=== PATIENT | female | born 1960 | race Caucasian/White ===

== ENCOUNTER 2017-10-17 07:29 | Emergency (ER) | payer BC ==
[~2017-10-17] VITALS: Ht 167.6 cm; Wt 111.6 kg
--- OUTSIDE RECORDS SUMMARY | ~2017-10-17 | XMS ---
Demographics + + + | Address | [address] | | | [address] | | | [place] [address] | + + + | Preferred Language | Unknown | + + + | Marital Status | Unknown | + + + | Moravian Affiliation | Unknown | + + + | Race | Unknown | + + + | Ethnic Group | Unknown | + + + Author + + + | Author | [facility] | + + + | Organization | [facility] | + + + | Address | 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) | | | | | | | | DNA test | | | | | | | | positive | | | | | | +---------+ + + +--------+ + + | Problem | CPAP | Z99.89 | | | Active | [id number] | | | (continuou | | | | | | | | s positive | | | | | | | | airway | | | | | | | | pressure) | | | | | | | | dependence | | | | | | +---------+ + + +--------+ + + | Problem | Family | | Z83.3 | | Active | [id number] | | | history of | | | | | | | | diabetes | | | | | | | | mellitus | | | | | | +---------+ + + +--------+ + + | Problem | Depression | | F32.9 | | Active | [id number] | +---------+ + + +--------+ + + | Problem | Asthma | | J45.909 | | Active | [id number] | +---------+ + + +--------+ + + ALLERGIES + + + + +--------+ | Substance | Reaction | Event Type | Date | Status | + + + + +--------+ | Erythromycin | vomiting | Drug Allergy | Jul, | Active | + + + + +--------+ SOCIAL HISTORY Never Assessed PLAN OF CARE + +---------+ | Activity | Details | + +---------+ +---+ | | +---+ + + + | Follow Up | prn, 3 Months Reason:null | + + + VITAL SIGNS + + + + | Height | 5ft 7in in | 2017-08-01 | + + + + | Weight | 270 lbs | 2017-08-01 | + + + + | BMI | 42.28 kg/m2 | 2017-08-01 | + + + + | Heart Rate | 70 /min | 2017-08-01 | + + + + | Blood pressure systolic | 140 mm Hg | 2017-08-01 | + + + + | Blood pressure diastolic | 75 mm Hg | 2017-08-01 | + + + + MEDICATIONS + + + + + + + +--------+ | Medicati | Instruct | Dosage | Frequenc | Start | End Date | Duration | Status | | on | ions | | y | Date | | | | + + + + + + + +--------+ | Hydrochl | Orally | 1 tablet | 24h | 02 Jul, | | 30 | Active | | orothiaz | Once a | in the | | 2016 | | day(s) | | | venessa 12.5 | day | morning | | | | | | | MG | | | | | | | | + + + + + + + +--------+ | Monteluk | Orally | 1 tablet | 24h | | | 30 | Active | | ast | Once a | in the | | | | day(s) | | | Sodium | day | evening | | | | | | | 10 mg | | | | | | | | + + + + + + + +--------+ | Advair | Inhalati | 1 puff | 12h | | | 30 days | Active | | Diskus | on Twice | | | | | | | | 100-50 | a day | | | | | | | | MCG/DOSE | | | | | | | | + + + + + + + +--------+ | Progeste | Orally | 1 | 24h | 28 May, | | 30 days | Active | | vidhya 100 | Once a | capsule | | 2017 | | | | | MG | day | at | | | | | | | | | bedtime | | | | | | + + + + + + + +--------+ | ProAir | Inhalati | 2 puffs | 4h | | | 30 | Active | | HFA 108 | on every | as | | | | day(s) | | | (90 | 4 hrs | needed | | | | | | | Base) | | | | | | | | | MCG/ACT | | | | | | | | + + + + + + + +--------+ | Sumatrip | Orally | 1 tablet | 12h | | | 30 | Active | | tolbert | Twice a | as | | | | day(s) | | | Succinat | day | needed | | | | | | | e 100 mg | | | | | | | | + + + + + + + +--------+ | Fluoxeti | Orally | 1 | 24h | | | 30 | Active | | ne HCl | Once a | capsule | | | | day(s) | | | 60 MG | day | in the | | | | | | | | | morning | | | | | | + + + + + + + +--------+ | Estradio | Orally | 1 tablet | 24h | | | 30 | Active | | l 1 MG | Once a | | | | | day(s) | | | | day | | | | | | | + + + + + + + +--------+ RESULTS No Results PROCEDURES + + +--------+ + | Procedure | Date Ordered | Result | Body Site | + + +--------+ + | DSCHRG MED/CURRENT | Aug 01, 2017 | | | | MED MERGE | | | | + + +--------+ + | TOBACCO NON-USER | Aug 01, 2017 | | | + + +--------+ + | DOC MEDS VERIFIED | Aug 01, 2017 | | | | W/PT OR RE | | | | + + +--------+ + IMMUNIZATIONS No Known Immunizations MEDICAL (GENERAL) HISTORY + + +------+ | Type | Description | Date | + + +------+ | Medical History | Chronic Asthma | | + + +------+ | Medical History | Depression | | + + +------+ | Surgical History | tonsillectomy | 1964 | + + +------+ | Surgical History | wisdom teeth removed | 1977 | + + +------+"
[~2017-10-17 07:29] MED LIST: ADVAIR 250-501 EACH INH; FLUOXETINE HCL60 MG PO; IMITREX25 MG PO; PROVENTIL HFA6.7 GM INH; SINGULAIR10 MG PO
[2017-10-17] MEDS ORDERED: HYDROCHLOROTH12.5 M1 PO (07:45)
[2017-10-17] MEDS ORDERED: ESTRADIOL1 MG PO (07:45)
--- NOTE | 2017-10-17 22:25 | EKG ---
[facility] [address] [place] [address] Signed Normal sinus rhythm Normal ECG When compared with ECG of 21-OCT-2016 19:39, No significant change was found Confirmed by RACHAEL BENTON MD ([id number]) on 10/17/2017 10:25:39 PM Electronically Signed By: RACHAEL BENTON MD 10/17/17 2225 PAT[facility] DATE OF : 56 PHYSICIAN: RACHAEL BENTON MD REPORT #: [id number] REPORT IS CONFIDENTIAL AND NOT TO BE RELEASED WITHOUT AUTHORIZATION
== END 2017-10-17 09:30 | disposition home or self-care (01) ==
LOC: ED 07:29
DX: J45.909 Unspecified asthma, uncomplicated (principal); J06.9 Acute upper respiratory infection, unspecified; Z88.1 Allergy status to other antibiotic agents; Z79.899 Other long term (current) drug therapy; Z98.890 Other specified postprocedural states
CPT/HCPCS: 71020; 80053; 83735; 84484; 85025; 93005; 93010; 94640; 96374; 99284; J1100; J2060

== ENCOUNTER 2020-06-10 20:39 | Emergency (ER) | payer BC ==
[~2020-06-10] VITALS: Ht 167.6 cm; Wt 117.9 kg
--- OUTSIDE RECORDS SUMMARY | ~2020-06-10 | XMS | Encounter Summary ---
Demographics + + + | Address | [address] | | | [place] [address] | + + + | Home Phone | | + + + | Preferred Language | Unknown | + + + | Marital Status | | + + + | Tenriism Affiliation | Unknown | + + + | Race | Unknown | + + + | Ethnic Group | Unknown | + + + Author + + + | Author | [facility] | | | and [place] | + + + | Organization | [facility] | | | and [place] | + + + | Address | Unknown | + + + | Phone | Unavailable | + + + Support + + +---------+ + | Name | Relationship | Address | Phone | + + +---------+ + | Charbel Sequeira | ECON | Unknown | | + + +---------+ + Care Team Providers + +------+ + | Care Sergeant Missile Crewman Name | Role | Phone | + +------+ + | Fady Storm MD | PCP | | + +------+ + Reason for Visit +---------+ + | Reason | Comments | +---------+ + | Consult | | +---------+ + Evaluate & Treat (Routine) +--------+--------+ + + + + | Status | Reason | Specialty | Diagnoses / | Referred By | Referred To | | | | | Procedures | Contact | Contact | +--------+--------+ + + + + | Closed | | Internal | Diagnoses | Dotty | Terry, | | | | Medicine - | Obstructive | Fady Huggins, | Jarrod Fuentes | | | | Sleep | sleep apnea | [address] | [address] | | | | Medicine / | (adult) | [address] | [address] | | | | Sleep | (pediatric) | [place], | [address] | | | | Medicine | consult, | [place] [address] | [place], [place] | | | | | [email or web address], [address] | Phone: | [phone] Phone: | | | | | in drawer, | [phone] | [phone] | | | | | bring | Fax: | Fax: | | | | | equip/AO | [phone] | [phone] | | | | | Procedures | | | | | | | NEW PATIENT | | | +--------+--------+ + + + + Encounter Details +--------+---------+ + + + | Date | Type | Department | Care Team | Description | +--------+---------+ + + + | 12/21/ | Office | [facility] | Viviana Quiroga | ELMER (obstructive | | 2020 | Visit | SLEEP DISORDER [address] | Noemi, DIRECTOR OF DATABASE MARKETING [address] | sleep apnea) | | | | [address] [place] | [address] [place] | (Primary Dx); | | | | [place] [address] | [place] [address] | Snoring; Fatigue, | | | | [phone] | [phone] | unspecified type | | | | | | | +--------+---------+ + + + Social History + +-------+ +--------+------+ | Tobacco Use | Types | Packs/Day | Years | Date | | | | | Used | | + +-------+ +--------+------+ | Never Smoker | | | | | + +-------+ +--------+------+ + +---+---+---+ | Smokeless Tobacco: | | | | | Never Used | | | | + +---+---+---+ + + +---------+ + | Alcohol Use | Drinks/Week | oz/Week | Comments | + + +---------+ + | Yes | | | | + + +---------+ + + + + + | Alcohol Habits | Answer | Date Recorded | + + + + | How often do you have a drink containing | 2-4 times a month | 12/21/2019 | | alcohol? | | | + + + + | How many drinks containing alcohol do you | 1 or 2 | 12/21/2019 | | have on a typical day when you are | | | | drinking? | | | + + + + | How often do you have six or more drinks on | Not asked | | | one occasion? | | | + + + + + + + + | Education | Answer | Date Recorded | + + + + | What is the highest level of school you | Professional school | 12/21/2019 | | have completed or the highest degree you | degree (e.g., , KAMILLA, | | | have received? | DVM, FAUSTO) | | + + + + + + + | Sex Assigned at | Date Recorded | | | | + + + | Not on file | | + + + documented as of this encounter Last Filed Vital Signs + + + + + | Vital Sign | Reading | Time Taken | Comments | + + + + + | Blood Pressure | 126/80 | 12/21/2019 9:56 AM | | | | | PST | | + + + + + | Pulse | 82 | 12/21/2019 9:56 AM | | | | | PST | | + + + + + | Temperature | - | - | | + + + + + | Respiratory Rate | 16 | 12/21/2019 9:56 AM | | | | | PST | | + + + + + | Oxygen Saturation | 96% | 12/21/2019 9:56 AM | | | | | PST | | + + + + + | Inhaled Oxygen | - | - | | | Concentration | | | | + + + + + | Weight | 121.3 kg (267 lb 6.7 | 12/21/2019 9:56 AM | | | | oz) | PST | | + + + + + | Height | 171.5 cm (5' 7.5") | 12/21/2019 9:56 AM | | | | | PST | | + + + + + | Body Mass Index | 41.27 | 12/21/2019 9:56 AM | | | | | PST | | + + + + + documented in this encounter Progress Notes Viviana Quiroga, SAJAN - 12/21/2019 10:00 AM PSTFormatting of this note might be diff erent from the original. Karime [facility] [place] [address] Ref: Fady Storm MD CC: Previous diagnosis of obstructive sleep apnea, severe daytime fatigue Chief Complaint Patient presents with Consult History of the Present Illness:This is a 59 y.o. female who is referred for sleep medicine consultation by Fady Storm MD because of a history of obstructive sleep apnea and daytime fatigue. Other significant medical issues include asthma and depression. The patient 's records are reviewed. The patient is interviewed and examined. Sleep/Wake Schedule: Ms. Tillman goes to bed at 9 PM every night and gets up at 5:30 AM on or but sleeps until 8 AM on weekends. It takes her less than 2 minutes, she says, to f all asleep. She wakes up once during the night to use the bathroom, but she is able to go b ack to sleep within a few minutes. She denies night sweats, nocturnal heartburn, and mornin g headaches. She endorses morning dry mouth and morning nasal stuffiness. She tosses and t urns at night and wakes up feeling unrefreshed. Dreams: The patient dreams most nights but seldom has nightmares. Her dreams began in the later part of the evening. She denies hypnagogic and hypnopompic hallucinations, sleepwalki ng, dream enactment, and sleep paralysis. RLS/PLM: She denies symptoms of restless legs and does not kick or twitch in her sleep. Sh e commonly has hypnic jerks. Apnea: The patient has been snoring since her early 20s. She has been observed stopping br eathing in her sleep. She has woken herself up snoring as well as gasping for air. She junior s not know if it is worse if she sleeps in any specific position. She sleeps on her left si de or back. Daytime Functioning: She is currently using her 6-year-old CPAP set to 8 cm H2O. It is not working properly because the hose comes off the mask and the humidifier no longer works. I n fact, it appears her CPAP is not recording data. The patient states she wears it each nig ht, but the compliance information from the last year indicates she has not been wearing it at all except for one evening for 16 minutes. She wakes up every morning feeling completely exhausted. She naps whenever she has an opportunity. On weekdays she naps twice. 30 minut es each time. On weekends she naps 2 to 4 hours Tuesday and Tuesday. She finds naps to be refreshing. She has driven while drowsy and even fallen asleep while driving. She denies s ymptoms of cataplexy. She drinks 4 cups of coffee in the morning. She has an espresso with lunch. Past Medical History: She has a past medical history of Asthma and Depression. She has a past surgical history that includes Tonsillectomy. Allergies Allergen Reactions Erythromycin Nausea And Vomiting Current Outpatient Medications Medication Sig Dispense Refill ADVAIR DISKUS 100-50 MCG/DOSE diskus inhaler Inhale 1 puff into the lungs 2 times daily . 10 DULoxetine (CYMBALTA) [address] capsule Take 20 mg by mouth Daily. estradiol (ESTRACE) 1 mg tablet Take 1 mg by mouth Daily. 0 FLUoxetine (PROZAC) 20 mg capsule Take 40 mg by mouth Daily. 1 hydroCHLOROthiazide (MICROZIDE) 12.5 MG capsule Take 12.5 mg by mouth Daily. 10 montelukast (SINGULAIR) 10 mg tablet Take 10 mg by mouth every evening. 10 progesterone (PROMETRIUM) 100 mg capsule Take 100 mg by mouth nightly. 0 No current facility-administered medications for this visit. Past Surgical History: Procedure Laterality Date TONSILLECTOMY There is no immunization history on file for this patient. Family Medical History: Her family history is not on file. She indicated that her mother is alive. She indicated that her father is alive. 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 Wants to refinish furniture and paint in her free ti me. Review of Systems: Constitutional: Denies unexplained fevers, chills, sweats, significant recent weight cortes ge. Eyes:Denies sudden loss of vision, diplopia, blurred vision. ENT: Denies loss of hearing, vertigo, nasal or sinus congestion, bleeding gums or poor de ntal repair. Card:Denies exertional substernal chest heaviness, leg pain. Denies palpitations, orthopn ea, ankle edema, presyncope. Resp: Endorses occasional cough. Denies wheezing, asthma, hemoptysis GI: Denies nausea, vomiting, abdominal pain, diarrhea, constipation, hematochezia. : Denies dysuria, pyuria, hematuria, frequency, incontinence MS: Denies back pain, neck pain, arthralgias, arthritis, myalgias Neuro: Denies seizures, strokes, loss of consciousness, dysesthesias or paresthesias, syn cope, concussions. Psych: Endorses depression (in remission). Denies: anxiety, panic, past history physical or sexual abuse, severe traumatic experiences Endocrine: Denies heat or cold intolerance Heme: Denies easy bruising or prolonged bleeding. No history of transfusions Allergic/Immunologic: Denies seasonal allergies PE: BP 126/80 | Pulse 82 | Resp 16 | Ht 1.715 m (5' 7.5") | Wt 121.3 kg (267 lb 6.7 oz) | SpO2 96% | BMI 41.27 kg/m Gen: obese, healthy, alert and not in acute distress HEENT:Head: Normocephalic, no lesions, without obvious abnormality. Nose: Normal external nose, mucus membranes and septum. Pharynx: Dental Hygiene adequate. Normal buccal mucosa. Normal pharynx. Mallampati 2 Pulm: lungs clear to auscultation, breath sounds equal and symmetric, no rhonchi, rales or wheezes Card: regular rate and rhythm, S1, S2 normal, no murmur, click, rub or gallop GI: soft, non-tender, without masses or organomegaly : Not examined Rectal: Not Examined Ext: not examined Skin:no rashes, no ecchymoses, no jaundice, no wounds Neuro:Grossly normal Psych:well dressed Alert and oriented to time, place and person, mood and affect are withi n normal limits, pt is a good historian; no memory problems were noted Heme: has no history of blood transfusion. Questionnaires Review: The score of 13 on the [place] Sleepiness scale suggests mild excess eloy sleepiness (11-14). The score of 20 on the Insomnia Severity Scale suggests that the pat ient has moderate clinical insomnia (15-21) and is severely dissatisfied with the quality of sleep. The Greene Depression Inventory score and severity with which it is consistent are 8 - Minimal depression. The score of 1 on the Greene Anxiety Inventory suggests minimal (0-7) rec ognized anxiety. The SF36v2 scores are as follows: Physical Functionin.54, Physical Role: 57.16, Genera l Health Perception: 53.19, Bodily Pain: 51.51, Emotional Role Functionin.17, Vitality: 31.8, Mental health: 56.1. These culminate to a Physical Composite Score of 53.92 and a Mental Composite Score of 49.1 7 which suggests the patient regards her physical and mental wellbeing to be roughly equival ent of the mean. She regards her vitality to be nearly 2 standard deviations below the mean . Assessment: Mrs. Tillman had a sleep study in 2013 in [place], [place], and she was diagnos ed with obstructive sleep apnea. She continued to have suboptimal sleep and had a polysomnog kwame in 2018 to titrate CPAP. 2018 Polysomnogram results are as follows: At [facility] sleep disorders lab in [facility] the patient was evaluated for sleep breathing disorders and all night polysomnogram on December 30, 2017. Study was requ ested to evaluate for optimizing CPAP therapy for obstructive sleep apnea and to evaluate fo r PLMD. Sleep architecture and staging: Testing began at 9:14 PM and ended at 5:45 AM for a total r ecording time of 510.4 minutes the sleep. Lasted 503.7 minutes and the total sleep time was 444 minutes, which resulted in a sleep efficiency of 87%. The sleep latency was 6.7 minute s. Latency to the first occurrence of stage R was 327 minutes. There were 2 stage R. He i s observed on the study night, 23 awakenings, and 113 total sleep transitions. Wake after sleep onset time accounted for 59.7 minutes, while the time spent in each sleep stage was 53.5 minutes for stage I 270.5 minutes for stage II 62.0 minutes for stage III and 58 minutes for stage are the percentage of total sleep time in each stage was 12%, 60.9%, 1 4%, and 13.1% respectively. Respiratory: The patient experienced 1 apnea which was central apnea. Yielding an AHI of 0 .3 events per hour. There were 0 occurrences of Elfego-Neff breathing, and 32 respiratory effort related arousals. The R ERA index was 4.3 events per hour, and his total respirator y index was 4.6 events per hour Oximetry analysis of continuous oxygen saturation showed a mean SPO2 value of 91.6% through out the study, with a minimum oxygen saturation during sleep of 88% and a mean value of 91.4 % for the same. Oxygen saturation below 88% equals 0 minutes of time spent asleep. Arousal: The patient experienced 438 total arousals for an arousal index of 59.2 arousals p er hour. Of these, 34 were identified as respiratory related arousals (4.6/h), 48 were PLM related arousal 6.5/h, and 356 were spontaneous (48.1/h) the results of no identifying c ause. Cardiac: Analysis of ECG activity showed sinus rhythm with the highest heart rate during th e recording was 145 bpm. The average heart rate during sleep was 67 bpm, while the highest heart rate for the same. Was 85 bpm. The patient experienced no cardiac arrhythmias. Limb movements there were a total of 244 periodic limb movements during sleep, of which 47 were associated with arousals. This resulted in a PLM index of 33/h and a PLM arousal index of 6.4/h. Summary: Findings related to sleep diagnosis: There was mild residual R ERA noted with CPAP starting at 5 cm of 2 oh. Due to mild R ERA, CPAP was incrementally increased to 8 cm H2O where it appears to control the respiratory events the best with supine sleep. EEG abnormalities: Sleep architecture was fragmented with frequent arousals and short perio ds of awakening and severely delayed REM sleep. Arousals were mostly related to spontaneous arousals. However, PLM's also appear to cause significant arousals. Interpretation: Severe periodic limb movement disorder (PLMD (with arousals (PLM's index 33, PLM with arous al index 6.4) Obstructive sleep apnea Fragmentation of sleep mostly due to spontaneous arousal and PLM Recommendations Evaluate and treat for PLMD, obtain ferritin level. Start iron supplementation. If ferrit in is less than 75, repeat ferritin level every 3 months with goal of raising it above 75. Consider using gabapentin or dopamine agonist for PLM. Because all antidepressants except W ellbutrin can worsen RLS with PLM, 1 should consider tapering off fluoxetine as clinically d eemed helpful. CPAP 8 cm H2O with [employer] DreamWear nasal mask and chinstrap Weight reduction should be addressed as a part of comprehensive treatment for ELMER as well a s general health maintenance and prevention Principles of sleep hygiene should be reviewed and encouraged as needed. Obstructive sleep apnea: The patient states she does not currently have any problems with p eriodic limb movements or restless legs. She has been diagnosed with obstructive sleep apne a. It appears her current CPAP is malfunctioning. Plan: She is being prescribed APAP today and will follow-up with [facility] PAP adherence team. Patient Active Problem List Diagnosis Fatigue Today, 45 minutes were spent face to face with the patient; the majority of time was spent counseling regarding obstructive sleep apnea. Parts of this note were dictated using WideOrbit voice recognition software. Occasional wrong - word or sound-alike substitutions may have occurred due to the inherent limitations of C4Roboi ce recognition software. Please read the chart carefully and recognize, using context, mathew crawford these substitutions have occurred. Fiona Avelar, Rod Piler - 12/21/2019 10:00 AM PSTFormatting of this note might be different from t he original. 12/21/19 0900 Greene Depression Inventory-II Depression Score 8 - Minimal depression Insomnia Severity Index Insomnia Severity Index 20 [place] Sleepiness Scale 1. Sitting and reading 2 2. Watching TV 3 3. Sitting, inactive in a public place (e.g. a theatre or a meeting) 2 4. As a passenger in a car for an hour without a break 3 5. Lying down to rest in the afternoon when circumstances permit 3 6. Sitting and talking to someone 0 7. Sitting quietly after a lunch without alcohol 0 8. In a car, while stopped for a few minutes in traffic 0 Total score 13 SF-36v2 Score PF 57.54 RP 57.16 BP 51.51 GH 53.19 VT 31.8 SF 52.33 RE 56.17 MH 56.1 PCS 53.92 MCS 49.17 documented in th is encounter Plan of Treatment Not on filedocumented as of this encounter Visit Diagnoses + + | Diagnosis | + + | ELMER (obstructive sleep apnea) - Primary Obstructive sleep apnea (adult) (pediatric) | + + | Snoring Other dyspnea and respiratory abnormality | + + | Fatigue, unspecified type | + + documented in this encounter
--- OUTSIDE RECORDS SUMMARY | ~2020-06-10 | XMS | Encounter Summary ---
Demographics + + + | Address | [address] | | | [place] [address] | + + + | Home Phone | | + + + | Preferred Language | Unknown | + + + | Marital Status | | + + + | Gnosticism Affiliation | Unknown | + + + | Race | Unknown | + + + | Ethnic Group | Unknown | + + + Author + + + | Author | [facility] | | | and [place] | + + + | Organization | [facility] | | | and Lloydana [...] Team Providers + +------+ + | Care Band Scroll Saw Operator Name | Role | Phone | + +------+ + | Fady Storm MD | PCP | | + +------+ + Reason for Visit +--------+--------+ + | Reason | Onset | Comments | | | Date | | +--------+--------+ + | Other | 02/05/ | | | | 2020 | | +--------+--------+ + Encounter Details +--------+ + + + + | Date | Type | Department | Care Team | Description | +--------+ + + + + | 02/05/ | Telephone | [facility] | Eric Peña, | Other | | 2020 | | SLEEP DISORDER [address] | Neurodiagnostic Tech | | | | | [address] | | | | | | [place] [id number] | | | | | | [phone] | | | +--------+ + + + + Social History + +-------+ [...] + + documented as of this encounter Miscellaneous Notes Telephone Encounter - Eric Peña [employer] - 02/06/2020 10:38 AM PDTClinic al sleep education call. Patient bought her PAP and does not want to take the time for the c ompliance part of having her PAP. "I just dont have the time". She is doing good and has wor n PAP for years. She has no complaints and will call us if she needs us before the 1 year. I put her on the call listElectronically signed by Eric Peña [employer] at 10:39 AM PDTdocumented in this encounter Plan of Treatment Not on filedocumented as of this encounter Visit Diagnoses Not on filedocumented in this encounter
--- OUTSIDE RECORDS SUMMARY | ~2020-06-10 | XMS | Encounter Summary ---
Demographics + + + | Address | [address] | | | [place] [address] | + + + | Home Phone | | + + + | Preferred Language | Unknown | + + + | Marital Status | | + + + | Yazidi Affiliation | Unknown | + + + | Race | Unknown | + + + | Ethnic Group | Unknown | + + + Author + + + | Author | [facility] | | | and [place] | + + + | Organization | [facility] | | | and [place] | [...] Team Providers + +------+ + | Care Skimmer Name | Role | Phone | + +------+ + | Fady Storm MD | PCP | | + +------+ + Reason for Visit +--------+--------+ + | Reason | Onset | Comments | | | Date | | +--------+--------+ + | Other | 08/28/ | New Patient previous treatment/testing | | | 2019 | | +--------+--------+ + Encounter Details +--------+ + + + + | Date | Type | Department | Care Team | Description | +--------+ + + + + | 08/28/ | Telephone | [facility] | Mary Leigh, | Other (New Patient | | 2019 | | NEUROLOGY [address] | previous | | | | [address] | [address] | treatment/testing) | | | | [place], [place] | [place] [address] | | | | | [address] | [phone] | | | | | [phone] | | | +--------+ + + + + Social History + +-------+ +--------+------+ | Tobacco Use | Types | Packs/Day | Years | Date | | | | | Used | | + +-------+ +--------+------+ | Never Assessed | | | | | + +-------+ +--------+------+ + + + | Sex Assigned at | Date Recorded | | | | + + + | Not on file | | + + + documented as of this encounter Miscellaneous Notes Telephone Encounter - Marty Lipscomb Ict Teacher - 10/01/2019 11:34 AM PSTA call wa s placed to discuss previous testing and treatment. We are wanting to know if there has been any previous imaging of the head, neck or spine, and if the patient has previously seen a n eurologist. If so we need locations and dates so reports and images can be requested prior t o their upcoming new patient appointment. Patient has 48 hours to confirm appointment. If appointment is not confirmed in 48 hours ap pointment will then be canceled. Called patient and confirmed appointment. She stated no previous neurologist or imaging. El ectronically signed by Marty Lipscomb Ict Teacher at 10/01/2019 11:35 AM PSTTelephone Encounter - Prashanth Kenyon CMA - 08/31/2019 2:56 PM PDTCalled patient and got appointment changed and confirmed. Pt never seen any previous neurologist nor had any imagine done. Tawana ctronically signed by Prashanth Kenyon CMA at 08/31/2019 2:57 PM PDTTelephone Encounter - Prashanth Benavides CMA - 08/28/2019 4:25 PM PDTIf patient calls back please informed them that th e number I called earlier was the only number on file for some reason and I double checked t he old [facility] in which the Patient does not have a profile. Called back at [phone] and th e patient did not answer and unfortunately the voicemail is full in which I'm unable to leav e a voicemail. Will await for patients call back. elephone Encounter - Rosalind Burnett - 08/28/2019 2:54 PM PDTS lynn, is returning call for Other (New Patient previous treatment/testing) and would like a call back. Additional Call Details: Per spouse patient needs to be called back with message [phone] Asked I take the other number out of file. Not to call him. elephone Encounter - Prashanth Kenyon CMA - 08/28/2019 2:32 PM PDTA call was placed to discuss previ ous testing and treatment. We are wanting to know if there has been any previous imaging of the head, neck or spine, and if the patient has previously seen a neurologist. If so we need locations and dates so reports and images can be requested prior to their upcoming new juni ent appointment. Patient has 48 hours to confirm appointment. If appointment is not confirmed in 48 hours ap pointment will then be canceled. Called patient to confirm appointment. Patient did not answer left a voicemail with a call back number. documente d in this encounter Plan of Treatment Not on filedocumented as of this encounter Visit Diagnoses Not on filedocumented in this encounter"
--- OUTSIDE RECORDS SUMMARY | ~2020-06-10 | XMS | Encounter Summary ---
Demographics + + + | Address | [address] | | | [place] [address] | + + + | Home Phone | | + + + | Preferred Language | Unknown | + + + | Marital Status | | + + + | Mormonism Affiliation | Unknown | + + + | Race | Unknown | + + + | Ethnic Group | Unknown | + + + Author + + + | Author | [facility] | | | and [place] | + + + | Organization | [facility] | | | and [place] | [...] Team Providers + +------+ + | Care Fire And Explosion Investigator Name | Role | Phone | + +------+ + | Fady Storm MD | PCP | | + +------+ + Reason for Visit + + + | Reason | Comments | + + + | New Patient | Migraine unspecified | + + + Evaluate & Treat (Routine) + +--------+ + + + + | Status | Reason | Specialty | Diagnoses / | Referred By | Referred To | | | | | Procedures | Contact | Contact | + +--------+ + + + + | Authorized | | Neurology | Diagnoses | Dotty, | [place], | | | | | Migraine, | Fady Huggins, | SHELLIE Hernandez | | | | | unspecified, | MD [address] | [address] | | | | | not | [address] | [address] | | | | | intractable, | [place], | D | | | | | without | [place] [address] | [place] | | | | | status | Phone: | [phone] | | | | | migrainosus | [phone] | Phone: | | | | | | Fax: | [phone] | | | | | | [phone] | Fax: | | | | | | | [phone] | + +--------+ + + + + Encounter Details +--------+---------+ + + + | Date | Type | Department | Care Team | Description | +--------+---------+ + + + | 10/08/ | Office | [facility] | Mary Leigh, | Chronic migraine | | 2019 | Visit | NEUROLOGY [address] | [address] | without aura without | | | | [address] | [address] | status migrainosus, | | | | [place], [place] | [place] [address] | not intractable | | | | [address] | [phone] | (Primary Dx) | | | | [phone] | | | +--------+---------+ + + + [...] + + + | Blood Pressure | 113/73 | 10/08/2019 2:54 PM | | | | | PST | | + + + + + | Pulse | 82 | 10/08/2019 2:54 PM | | | | | PST | | + + + + + | Temperature | - | - | | + + + + + | Respiratory Rate | - | - | | + + + + + | Oxygen Saturation | 97% | 10/08/2019 2:54 PM | | | | | PST | | + + + + + | Inhaled Oxygen | - | - | | | Concentration | | | | + + + + + | Weight | 119.7 kg (263 lb | 10/08/2019 2:54 PM | | | | 14.4 oz) | PST | | + + + + + | Height | 170.2 cm (5' 7") | 10/08/2019 2:54 PM | | | | | PST | | + + + + + | Body Mass Index | 41.33 | 10/08/2019 2:54 PM | | | | | PST | | + + + + + documented in this encounter Patient Instructions Patient Instructions Mary Leigh PA-C - 10/08/2019 2:45 PM PSTMay add Vitamin B2(ribofl colleen) 400 mg once daily and magnesium 200 mg twice daily for migraine prophylaxis. Encourage non-pharmacological headache prophylaxis including as daily exercise, stress rela xation, proper nutrition, avoid skipping meals, get adequate sleep, avoid over-sleeping. documented in this encounter Progress Notes Mary Leigh PA-C - 10/08/2019 2:45 PM PSTFormatting of this note might be different fro m the original. Neurologic Progress note Subjective: Patient ID: Katherin Tillman is a 59 y.o. female. HPI The patient is seen today at the request of Fady Storm MD for evaluation and saida gement of headaches. She developed headaches for many years. No trauma, illness injury or provocative factors. She denies any change of her headaches or migraine features over the years. She mentions she was taking sumatriptan quite often and Dr. Storm who she took over care with recently has some concerns about the frequent usage. She has been trying to not take as much sumatriptan recently. She has very good response t o sumatriptan, no side effects. 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 Headache description: Location: starts right face/frontal area, sharp and can become throbbing and behind eyes. Associated symptoms: nausea, very rare vomiting (once in last 4 years since treats migraine s sooner), photophobia, phonophobia. No aura. No focal neurological symptoms such as weakness, numbness, vision loss, diplopia, walking/b alance problem, vertigo, speech problem. Aggravating factors: Bright light, sound, activity. Alleviating factors: none identified, No change of migraine features over the years. Current headache frequency: 10 days per month Headache duration: Several hours to all day. With treatment 0-3 hours. Previous imaging: none Previous preventative medications tried: none Abortive medications tried: Naproxen every other day for muscle/body pain at night. Sumatriptan was taking 9+ per month, currently about once per week (trying to take less). Family history migraine: grandmother suffered from headaches she had to be in bed with occa sionally. 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 Exercise: intermittent Caffeine: 24 oz coffee am, 2-4 cups through the afternoon. Sleep: 7 hours per night. Admits fatigue. Has sleep apnea, wears CPAP nightly The following elements of the patient's history were reviewed and updated as appropriate. T hey are available elsewhere in the patient record. allergies, current medications, past fam asuncion history, past medical history, past social history, past surgical history and problem li st Review of Systems Constitutional: Positive for fatigue and fever. Neurological: Positive for headaches. Psychiatric/Behavioral: Positive for dysphoric mood. All other systems reviewed and are negative. Objective: Ht 1.702 m (5' 7") | Wt 119.7 kg (263 lb 14.4 oz) | BMI 41.33 kg/m Neurologic Exam Mental Status Oriented to person, place, and time. Attention: normal. Speech: speech is normal Level of consciousness: alert Knowledge: good and consistent with education. Cranial Nerves CN II Visual bowser full to confrontation. Visual acuity: normal with correction CN III, IV, Pupils are equal, round, and reactive to light. Nystagmus location: with right gaze few beats. has been noted over 25 years ago. Nystagmus type: horizontal Diplopia: none CN V Facial sensation intact. CN VII Facial expression full, symmetric. CN VIII Hearing: intact CN IX, X CN IX normal. CN X normal. CN XI CN XI normal. CN XII CN XII normal. Motor Exam Muscle bulk: normal Overall muscle tone: normal Strength Strength 5/5 throughout. Sensory Exam Light touch normal. Pinprick normal. Gait, Coordination, and Reflexes Gait Gait: normal Coordination Romberg: negative Finger to nose coordination: normal Tremor Resting tremor: absent Action tremor: absent Reflexes Right brachioradialis: 1+ Left brachioradialis: 1+ Right biceps: 1+ Left biceps: 1+ Right patellar: 2+ Left patellar: 2+ Right achilles: 1+ Left achilles: 1+ Physical Exam Eyes: Pupils: Pupils are equal, round, and reactive to light. Neurological: Mental Status: She is oriented to person, place, and time. Coordination: Ddnrdy-Dnhw-Eubgyt Test and Romberg Test normal. Gait: Gait is intact. Deep Tendon Reflexes: Strength normal. Reflex Scores: Bicep reflexes are 1+ on the right side and 1+ on the left side. Brachioradialis reflexes are 1+ on the right side and 1+ on the left side. Patellar reflexes are 2+ on the right side and 2+ on the left side. Achilles reflexes are 1+ on the right side and 1+ on the left side. Psychiatric: Speech: Speech normal. Assessment and Plan: The patient is a pleasant 59 year old woman with a long history 40+ years of headache and m igraine. Her neurological exam today is noted for right gaze nystagmus few beats, otherwise non-foca l. Apparently this has been noted over 25 years ago. She has no vision disturbance, no focal neurological deficit or symptoms. She is not interested in brain imaging study as her symptoms have been stable for many year s. Discussed about chronic migraine condition and about risk of medication overuse or side eff ects/safety concerns with sumatriptan. She denies any known vascular disease. Not a smoker, normal blood pressure, no diabetes. Discussed options for prophylactic migraine treatments if migraine frequency is more than 6 -8 days per month depending on severity of the episodes. May add Vitamin B2(riboflavin) 400 mg once daily and magnesium 200 mg twice daily for migra ine prophylaxis. Encourage non-pharmacological headache prophylaxis including as daily exercise, stress rela xation, proper nutrition, avoid skipping meals, get adequate sleep, avoid over-sleeping. Reduce caffeine, goal to 1-2 cups coffee per day. Regarding the sumatriptan I would recommend her to limit to 50-100 mg (lowest effective dos e) 1-2 days per week. If migraine frequency is above 8-10 days per month, may consider additional prophylactic pr escription medications. She prefers to avoid at this time. documented in this e ncounter Plan of Treatment Not on filedocumented as of this encounter Visit Diagnoses + + | Diagnosis | + + | Chronic migraine without aura without status migrainosus, not intractable - Primary | | Chronic migraine without aura, without mention of intractable migraine without mention | | of status migrainosus | + + documented in this encounter
--- OUTSIDE RECORDS SUMMARY | ~2020-06-10 | XMS | Encounter Summary ---
Demographics + + + | Address | [address] | | | [place] [address] | + + + | Home Phone | | + + + | Preferred Language | Unknown | + + + | Marital Status | | + + + | Judaism Affiliation | Unknown | + + + | Race | Unknown | + + + | Ethnic Group | Unknown | + + + Author + + + | Author | [facility] | | | and [place] | + + + | Organization | [facility] | | | and [place] [...] Team Providers + +------+ + | Care Professional Sports Scout Name | Role | Phone | + +------+ + | Fady Storm MD | PCP | | + +------+ + Reason for Visit +--------+ + | Reason | Comments | +--------+ + | Other | Chart Notes | +--------+ + Encounter Details +--------+ + + + + | Date | Type | Department | Care Team | Description | +--------+ + + + + | 11/19/ | Telephone | [facility] | Mary Leigh, | Other (Chart Notes) | | 2020 | | NEUROLOGY [address] | [address] | | | | | [address] | [address] [facility] [address] | | | | | [place], [place] | [place] [address] | | | | | [address] | [phone] | | | | | [phone] | | | +--------+ + + + [...] this encounter Miscellaneous Notes Telephone Encounter - Zoe Monroe Medical Assistant - 11/19/2019 2:53 PM Sunni quinn staff called from [facility] in [place], [place]. Provider request last chart note. Faxed over today 11/19/19 @ [phone]. docugretchen in this encounter Plan of Treatment Not on filedocumented as of this encounter Visit Diagnoses Not on filedocumented in this encounter"
--- OUTSIDE RECORDS SUMMARY | ~2020-06-10 | XMS | Clinical Summary ---
Demographics + + + | Address | [address] | | | [place] [address] | + + + | Home Phone | | + + + | Preferred Language | Unknown | + + + | Marital Status | | + + + | Voodoo Affiliation | Unknown | + + + | Race | Unknown | + + + | Ethnic Group | Unknown | + + + Author + + + | Author | [facility] | | | and [place] | + + + | Organization | [facility] | | | and [...] Team Providers + +------+ + | Care Machine Stone Polisher Apprentice Name | Role | Phone | + +------+ + | Fady Storm MD | PCP | | + +------+ + Allergies + + + + + + | Active Allergy | Reactions | Severity | Noted | Comments | | | | | Date | | + + + + + + | Erythromycin | Nausea And Vomiting | | 10/08/20 | | | | | | 19 | | + + + + + + Medications + + + +---------+------+------+-------+ | Medication | Sig | Dispensed | Refills | Star | End | Statu | | | | | | t | Date | s | | | | | | Date | | | + + + +---------+------+------+-------+ | ADVAIR DISKUS | Inhale 1 puff into | | 10 | 11/2 | | Activ | | 100-50 MCG/DOSE | the lungs 2 times | | | 3/20 | | e | | diskus inhaler | daily. | | | 19 | | | + + + +---------+------+------+-------+ | montelukast | Take 10 mg by mouth | | 10 | 11/2 | | Activ | | (SINGULAIR) 10 mg | every evening. | | | 3/20 | | e | | tablet | | | | 19 | | | + + + +---------+------+------+-------+ | FLUoxetine | Take 40 mg by mouth | | 1 | 11/2 | | Activ | | (PROZAC) 20 mg | Daily. | | | /20 | | e | | capsule | | | | 19 | | | + + + +---------+------+------+-------+ | | Take 12.5 mg by | | 10 | /2 | | Activ | | hydroCHLOROthiazide | mouth Daily. | | | 03/19 | | e | | (MICROZIDE) 12.5 MG | | | | 19 | | | | capsule | | | | | | | + + + +---------+------+------+-------+ | progesterone | Take 100 mg by mouth | | 0 | /2 | | Activ | | (PROMETRIUM) 100 mg | nightly. | | | 03/19 | | e | | capsule | | | | 19 | | | + + + +---------+------+------+-------+ | estradiol | Take 1 mg by mouth | | 0 | 11/2 | | Activ | | (ESTRACE) 1 mg | Daily. | | | 03/19 | | e | | tablet | | | | 19 | | | + + + +---------+------+------+-------+ | DULoxetine | Take 20 mg by mouth | | 0 | | | Activ | | (CYMBALTA) [address] | Daily. | | | | | e | | capsule | | | | | | | + + + +---------+------+------+-------+ Active Problems +---------+ + | Problem | Noted Date | +---------+ + | Fatigue | 12/21/2019 | +---------+ + Family History + +------+--------+ + | Relation | Name | Status | Comments | + +------+--------+ + | Father | | Alive | | + +------+--------+ + | Mother | | Alive | | + +------+--------+ + Social History + +-------+ +--------+------+ | [...] on file | | + + + Last Filed Vital Signs + + + [...] | | + + + + + Plan of Treatment + + + + + | Health Maintenance | Due Date | Last | Comments | | | | Done | | + + + + + | Hepatitis C | | | | | Screening | 8 | | | + + + + + | Med Mgmt: Cr | | | | | | 8 | | | + + + + + | Med Mgmt: K | | | | | | 8 | | | + + + + + | Med Mgmt: Na | | | | | | 8 | | | + + + + + | Med Mgmt: eGFR | | | | | | 8 | | | + + + + + | Medication | | | | | Management | 8 | | | + + + + + | Cervical Cancer | | | | | Screening (Pap) | 8 | | | + + + + + | Colorectal Cancer | | | | | Screening | 8 | | | | (Colonoscopy) | | | | + + + + + | Vaccine: Zoster (1 | | | | | of 2) | 8 | | | + + + + + | Breast Cancer | | | | | Screening | 3 | | | + + + + + | Vaccine: | | 02/23/20 | | | Dtap/Tdap/Td (2 - | 8 | 08, | | | Td) | | 09/27/20 | | | | | 05 | | + + + + + | Vaccine: Influenza | | 07/20/20 | | | (#1) | 0 | 19, | | | | | 09/11/20 | | | | | 18, | | | | | 11/05/19 | | | | | 18, | | | | | Addition | | | | | al | | | | | history | | | | | exists | | + + + + + Results Not on filefrom Last 3 Months Insurance +---------+--------+ +--------+ +---------+------+ | Payer | Benefi | Subscriber | Effect | Phone | Address | Type | | | t Plan | ID | eloy | | | | | | / | | Dates | | | | | | Group | | | | | | +---------+--------+ +--------+ +---------+------+ | [employer] | [employer] | [id number] | 10/31/19 | [phone] | | PPO | | | [place] [employer] | 3 | 19-Pre | 8 | | | | | [place] | | sent | | | | | | PPO | | | | | | +---------+--------+ +--------+ +---------+------+ | [employer] | [employer] | [id number] | 10/31/19 | [phone] | | PPO | | | [place] [employer] | 3 | 19-Pre | 8 | | | | | [place] | | sent | | | | | | PPO | | | | | | +---------+--------+ +--------+ +---------+------+ + +--------+ +--------+ + + | Guarantor Name | Accoun | Relation to | Date | Phone | Billing Address | | | t Type | Patient | of | | | | | | | | | | + +--------+ +--------+ + + | Katherin Tillman | Person | Self | [birth year] | [address] | | | al/Fam | | 1959 | [phone] | [place] [address] | | | asuncion | | | 8 (Home) | | + +--------+ +--------+ + + | Katherin Tillman | Person | Self | [birth year] | [address] | | | al/Rehan | | 1960 | [phone] | [place] [address] | | | asuncion | | | 8 (Home) | | + +--------+ +--------+ + + Advance Directives + + + + + | Type | Date Recorded | Patient | Explanation | | | | Wrecking Car Driver | | + + + + + | Power of | | | | | Liner Assembler | | | | + + + + + | Advance | | | | | Directive | | | | + + + + +
[~2020-06-10 20:39] MED LIST changes: +CYMBALTA20 MG PO; +ESTRADIOL1 MG PO; +HYDROCHLOROTH12.5 M1 PO; +MOTRIN IB200 MG PO; +MULTIVITAMINS1 EAC8 PO; +NORCO 5-325 TA1 EACH PO; +PROGESTERONE200 MG PO; +VITAMIN D1000 UNI1 PO
[2020-06-10] MEDS ORDERED: POTASSIUM CHLO10 ME1 PO (20:56)
== END 2020-06-10 21:31 | disposition home or self-care (01) ==
LOC: ED 20:39
PROC: 0HQ1XZZ Repair Face Skin, External Approach (ICD-10-PCS; principal; 2020-06-10)
DX: S01.411A Laceration without foreign body of right cheek and temporomandibular area, initial encounter (principal); J45.909 Unspecified asthma, uncomplicated; G43.909 Migraine, unspecified, not intractable, without status migrainosus; F32.9 Major depressive disorder, single episode, unspecified; Z23 Encounter for immunization; Z88.1 Allergy status to other antibiotic agents; Z79.899 Other long term (current) drug therapy; W01.0XXA Fall on same level from slipping, tripping and stumbling without subsequent striking against object, initial encounter
CPT/HCPCS: 12011; 90471; 90715; 99282-25

== ENCOUNTER 2022-07-22 05:45 | Day surgery (SDC) | payer OTHER ==
[~2022-07-22] VITALS: Ht 167.6 cm; Wt 118.6 kg
[~2022-07-22 05:45] MED LIST changes: +POTASSIUM CHLO10 ME1 PO
--- NOTE | 2022-07-22 08:26 | NUR ---
07/22/22 0826 Eva Montes 0893 PT ARRIVED TO PACU ON 2L VIA NC, PT ASLEEP AND WAKES EASILY TO VERBAL STIMULI AND DENIES PAIN. PLAN OF CARE DISUCSSED AND PT EASILY FALLS BACK TO SLEEP. VSS.
--- NOTE | 2022-07-22 08:40 | NUR ---
PT ALERT, ORIENTED AND SUPPORTED BY HER TIM. PT PLANNING ON GOING RIGHT BACK TO WORK TOAY. ENCOURAGED PT TO VISIT WITH RN AND STAFF TO THE RECOMMENDATION THEY WILL HAVE FOR PT. TIM ACKNOWLEDGED, PT SAID SHE HAS DEADLINES SHE HAS TO MEET TODAY. PT DID ALLOW ME TO PRAY FOR HER. SHARED PTS DESIRE TO RETURN TO WORK TODAY WITH [employer] OPERATOR [employer]. [facility] WILL FOLLOW-UP.
--- NOTE | 2022-07-22 12:04 | OR ---
[facility] [address], [place] [address] Signed DATE OF OPERATION: 07/22/2022 SURGEON: Milad Johnson MD PREOPERATIVE DIAGNOSES: 1. Brother with history of colonic polyps in his 50s. 2. Personal history of colonic polyps age 52 with 10 year recommended followup. POSTOPERATIVE DIAGNOSES: 1. Minimal sigmoid diverticulosis. 2. 8 mm polyp in cecum/opposite ileocecal valve (snare, clip). 3. 4 mm polyps x2, proximal right colon (snare). 4. 4 mm polyp, splenic flexure. 5. 4 mm polyps x2 at rectosigmoid junction (18 cm). 6. Minimal internal hemorrhoids. PROCEDURE: Colonoscopy with snare polypectomy, hot biopsy and application of clip. ESTIMATED BLOOD LOSS: None. INDICATIONS: Cheryl is a 62-year-old female, asked to see me for followup colonoscopy. She underwent colonoscopy in 2011 at the age of 52 while living in [place], [place]. She had two benign polyps removed. She was asked to follow up in 10 years. Consequently, these should be hyperplastic polyps. She has had a brother who had colonic polyps removed at his 1st colonoscopy in his 50s. She cannot recall if he has been back every five years or every 10 years. He happens to live in [place], [place]. She is going to call him and let us know. She has yet to do that. Otherwise, no family history of colon cancer. She has no lower GI complaints. In the office, I gave her a pamphlet on colonoscopy. She recalls the nature of the test. There is risk including, but not limited to gas bloating, crampy abdominal pain, bleeding, perforation requiring surgery, and missed diagnosis. We also discussed the need for IV conscious sedation. We initially thought she need monitored anesthesia care. However, she did fairly well today with her IV Versed and fentanyl. She had expressed understanding and wished to proceed. PROCEDURE NOTE: Cheryl was taken into our endoscopy suite and placed in the left lateral decubitus position. She was given a total of 8 mg of Versed and 100 mcg of fentanyl to cover the Electronically Signed By: MILAD JOHNSON MD 07/22/22 1204 PATIENT NAME: CHERYL GRAHAM OPERATIVE REPORT DATE OF : 56 REPORT #: [id number] PHYSICIAN: MILAD JOHNSON MD PCP: FADY BARRERA MD REPORT IS CONFIDENTIAL AND NOT TO BE RELEASED WITHOUT AUTHORIZATION [facility] [address], [place] [address] Signed case. She was awake several times during the procedure and we had to give some additional medication. We did use some abdominal compression in order to advance the scope directly into the cecum itself. She is tall and her colon is somewhat long. Unfortunately, her prep was moderate. She will need a double bowel prep in the future. We saw probably 85% of her colonic mucosa. We could easily see the appendiceal orifice and the ileocecal valve. We had also done a digital rectal exam and this had been unremarkable. There were no external hemorrhoids and good sphincter tone. The scope was then slowly withdrawn. We used a combination of hot biopsy forceps and snare to remove the polyp opposite the ileocecal valve. We then placed a clip over that polyp. There were two additional polyps in the proximal right colon. The most proximal polyp came out with the hot biopsy forceps. The 2nd one just a few cm distal to that came out with the snare. We then found an additional polyp in the splenic flexure removed with the hot biopsy forceps. Once we got down to the rectosigmoid junction at around 18 cm, she had two small polyps next to each other, removed with the hot biopsy forceps. The rectum was unremarkable, although she had quite a bit of liquid particulate stool matter in the rectum. We spent quite a bit of time trying to suction out stool in the left colon and in the rectum which helped, but did not completely evacuate all the liquid particulate stool matter. We had retroflexed the scope in the rectum, we could see that she has minimal internal hemorrhoid columns. After this, the gas was suctioned out and the colonoscope removed. Cheryl tolerated the procedure quite well. RECOMMENDATIONS: I will see Cheryl back in my office in 7 to 14 days to review her results. She will need a double bowel prep in the future. If she has any significant recall of the procedure, she should consider monitored anesthesia care in the future. We need to see her back in about 12 to 18 months for a repeat colonoscopy. MD TRINITY Huston/KEMI /[id number] cc: MD Fady Huston MD Electronically Signed By: MILAD JOHNSON MD 07/22/22 1204 PATIENT NAME: CHERYL GRAHAM OPERATIVE REPORT DATE OF : 56 REPORT #: [id number] PHYSICIAN: MILAD JOHNSON MD PCP: FADY BARRERA MD REPORT IS CONFIDENTIAL AND NOT TO BE RELEASED WITHOUT AUTHORIZATION [facility] [address] [place], [place] [address] Signed Copies: MILAD JOHNSON MD, MALCOLM MD ~ Electronically Signed By: MILAD JOHNSON MD 07/22/22 1204 PATIENT NAME: SANTOSCHERYL [facility] OPERATIVE REPORT DATE OF : 56 REPORT #: [id number] PHYSICIAN: MILAD JOHNSON MD PCP: FADY BARRERA MD REPORT IS CONFIDENTIAL AND NOT TO BE RELEASED WITHOUT AUTHORIZATION
--- NOTE | 2022-07-26 12:51 | PATH ---
[facility] [address], [place] [address] Signed SPECIMEN(S): A CECUM COLON POLYP SPECIMEN(S): B PROXIMAL ASCENDING/RIGHT COLON POLYPS SPECIMEN(S): C SPLENIC FLEXURE COLON POLYP SPECIMEN(S): D RECTOSIGMOID COLON POLYP AT 18 CM SPECIMEN SOURCE: A. CECUM COLON POLYP B. PROXIMAL ASCENDING/RIGHT COLON POLYPS C. SPLENIC FLEXURE COLON POLYP D. RECTOSIGMOID COLON POLYP AT 18 CM CLINICAL HISTORY: Colonoscopy. History of polyps. Post: Polyps, minimal diverticulosis. FINAL PATHOLOGIC DIAGNOSIS: A. Cecum colon polyp: - Serrated polyp / adenoma (two fragments). B. Proximal ascending / right colon polyps: - Tubular adenoma (multiple fragments). C. Splenic flexure colon polyp: - Tubular adenoma (one fragment). D. Rectosigmoid colon polyp at 18 cm: - Hyperplastic polyp (one fragment). JVR:[facility]:C2NR MICROSCOPIC EXAMINATION: Histologic sections of all submitted blocks are examined by light microscopy. These findings, together with the gross examination, support the pathologic diagnosis. GROSS DESCRIPTION: Four specimens are received in four containers labeled with "FAUSTO." A. The specimen, labeled "FAUSTO, 1," and designated on the requisition "cecum polypectomy," is received in formalin and consists of two fragments of pink-tolbert tissue (0.2-0.3 cm in greatest dimension). The specimen is submitted entirely in cassette (A1). B. The specimen, labeled "FAUSTO, 2," and designated on the requisition "proximal ascending/right colon polypectomy," is received in formalin and consists of seven fragments of pink-tolbert tissue (0.2-0.3 cm in greatest dimension). The specimen is submitted entirely in cassette (B1). C. The specimen, labeled "FAUSTO, 3," and designated on the requisition "splenic PATIENT NAME: CHERYL GRAHAM PATHOLOGY DATE OF : 56 REPORT #: [id number] PHYSICIAN: KATRINA TRACY PCP: SANDRA BARRERA MD REPORT IS CONFIDENTIAL AND NOT TO BE RELEASED WITHOUT AUTHORIZATION [facility] [address], [place] [address] Signed flexure polypectomy," is received in formalin and consists of one fragment of pink-tolbert tissue (0.3 cm in greatest dimension). The specimen is submitted entirely in cassette (C1). D. The specimen, labeled "FAUSTO, 4," and designated on the requisition "rectosigmoid polypectomy 2, at 18 cm," is received in formalin and consists of two fragments of pink-tolbert tissue (0.2-0.3 cm in greatest dimension). The specimen is submitted entirely in cassette (D1). AC (under the direct supervision of a pathologist) The Gross Description was prepared using a voice recognition system. The report was reviewed for accuracy; however, sound-alike word errors, addition and/or deletions may occur. If there is any question about this report, please contact Client Services. PERFORMING LABORATORY: The technical component was performed by [facility], [address] [place] [id number] (CLIA# [id number]). Professional interpretation was performed by [facility], [address] [place] [address], [place] [address] (CLIA#: [id number]). Diagnostician: Dirk Blanco MD Pathologist Electronically Signed 07/26/2022 Copies: ~ PATIENT NAME: SANTOSCHERYL PATHOLOGY DATE OF : 56 REPORT #: [id number] PHYSICIAN: KATRINA TRACY PCP: SANDRA BARRERA MD REPORT IS CONFIDENTIAL AND NOT TO BE RELEASED WITHOUT AUTHORIZATION
== END 2022-07-22 09:20 | disposition home or self-care (01) ==
LOC: DS 05:45
PROVIDERS: ATTEND Colon & Rectal Surgery
PROC: 0DBC8ZX Excision of Ileocecal Valve, Via Natural or Artificial Opening Endoscopic, Diagnostic (ICD-10-PCS; 2022-07-22)
PROC: 0DBN8ZX Excision of Sigmoid Colon, Via Natural or Artificial Opening Endoscopic, Diagnostic (ICD-10-PCS; 2022-07-22)
PROC: 0DBL8ZX Excision of Transverse Colon, Via Natural or Artificial Opening Endoscopic, Diagnostic (ICD-10-PCS; 2022-07-22)
PROC: 0DBK8ZX Excision of Ascending Colon, Via Natural or Artificial Opening Endoscopic, Diagnostic (ICD-10-PCS; principal; 2022-07-22 07:30)
DX: Z12.11 Encounter for screening for malignant neoplasm of colon (principal); D12.0 Benign neoplasm of cecum; D12.2 Benign neoplasm of ascending colon; D12.3 Benign neoplasm of transverse colon; K63.5 Polyp of colon; K57.30 Diverticulosis of large intestine without perforation or abscess without bleeding; E66.9 Obesity, unspecified; J45.909 Unspecified asthma, uncomplicated; K64.8 Other hemorrhoids; Z20.822 Contact with and (suspected) exposure to COVID-19; Z86.010 Personal history of colon polyps; Z88.1 Allergy status to other antibiotic agents; Z68.41 Body mass index [BMI] 40.0-44.9, adult; Z83.71 Family history of colonic polyps
CPT/HCPCS: 87502; 99153; G0500; J2250; J3010; J7121; U0003

== ENCOUNTER 2024-08-07 07:55 | Day surgery (SDC) | payer MEDICARE, OTHER ==
[2024-08-01 11:58] VITALS: BP 138/87
[~2024-08-07] VITALS: Ht 167.6 cm; Wt 112.7 kg
[~2024-08-07 07:55] MED LIST changes: +IBLOOD GLUCOSE TEST STRIP 1 EA TEST VI PRN; +LACTATED RINGER'S 1,000 ML IV SCH; +LIDOCAINE HCL 1% 5 ML SDV INJ ONE; +OZEMPIC2 MG/0.75 SQ
--- NOTE | 2024-08-07 08:04 | NUR ---
PT NOT AVAILABLE FOR VISIT. PROVIDED PRAYER.
[2024-08-07 08:19] VITALS: BP 128/70
[2024-08-07] MEDS ORDERED: DEXAMETHASONE SOD PHOS 4 MG/ML VIAL ONE (09:55)
[2024-08-07] MEDS ORDERED: propofoL 200 MG/20 ML VIAL ONE ×3 (09:55→10:36)
[2024-08-07] MEDS ORDERED: ACETAMINOPHEN 1,000 MG/100 ML VIAL ONE (09:55)
[2024-08-07] MEDS ORDERED: LIDOCAINE HCL 2% 5 ML SDV ONE (09:55)
[2024-08-07] MEDS ORDERED: fentaNYL citrate 100 MCG/2 ML VIAL ONE (09:55)
[2024-08-07] MEDS ORDERED: KETOROLAC TROMETHAMINE 30 MG/ML VIAL ONE (09:55)
[2024-08-07] MEDS ORDERED: ondansetron HCL 4 MG/2 ML VIAL ONE (09:55)
[2024-08-07] MEDS ORDERED: HYDROmorphone HCL 1 MG/ML SYR IV PRN (10:30)
[2024-08-07] MEDS ORDERED: PROCHLORPERAZINE EDISYLATE 10 MG/2 ML VIAL IV PRN (10:30)
[2024-08-07] MEDS ORDERED: fentaNYL citrate 50 MCG/ML SDV IV PRN (10:30)
[2024-08-07] MEDS ORDERED: IBLOOD GLUCOSE TEST STRIP 1 EA TEST VI PRN (10:30)
[2024-08-07] MEDS ORDERED: NALOXONE HCL 0.4 MG SYR IV PRN (10:30)
[2024-08-07] MEDS ORDERED: droPERidol 5 MG/2 ML VIAL IV PRN (10:30)
[2024-08-07] MEDS ORDERED: ondansetron HCL 4 MG/2 ML VIAL IV PRN (10:30)
[2024-08-07 11:17] VITALS: BP 143/87
--- NOTE | 2024-08-07 11:23 | NUR ---
08/07/24 1123 Courtney Byrd 1048 PT ARRIVED IN PACU WIDE AWAKE WITH NO C/O'S. 1100 DR AT BEDSIDE. ALL QUESTIONS ANSWERED. 1110 SITTING UP IN BED SIPPING ON WATER AND TALKING TO STAFF. 1123 DC INSTRUCTIONS GIVEN.
--- NOTE | 2024-08-09 15:50 | PATH ---
[facility] [address] [place], [place] [address] Signed SPECIMEN(S): A ENDOCERVICAL CURETTINGS SPECIMEN(S): B ENDOMETRIAL CURETTINGS AND POLYP SPECIMEN SOURCE: A. ENDOCERVICAL CURETTINGS B. ENDOMETRIAL CURETTINGS AND POLYP CLINICAL HISTORY: PMB, endometrial thickening, submucous uterine fibroid FINAL PATHOLOGIC DIAGNOSIS: A. Endocervix, curettage: - Fragments of benign endocervical and ectocervical tissue; negative for dysplasia B. Endometrium, curettage: - Fragments of inactive endometrium and benign endometrial polyps; no hyperplasia or neoplasia identified BRP MICROSCOPIC EXAMINATION: Histologic sections of all submitted blocks are examined by light microscopy. These findings, together with the gross examination, support the pathologic diagnosis. GROSS DESCRIPTION: A. The specimen, labeled and designated "Layne, endocervical curettings," is received in formalin and consists of a portion of pink-tolbert soft and mucoid tissue (1.5 x 1.5 x 0.3 cm in aggregate). The specimen is submitted entirely in cassette (A1). B. The specimen, labeled and designated "Hatfield, endometrial curettings and polyp," is received in formalin and consists of multiple fragments of tolbert to red-brown soft tissue (2.8 x 1.6 x 0.4 cm in aggregate). The specimen is submitted entirely in cassette (B1). VB (under the direct supervision of a pathologist) The Gross Description was prepared using a voice recognition system. The report was reviewed for accuracy; however, sound-alike word errors, addition and/or deletions may occur. If there is any question about this report, please contact Client Services. ADDITIONAL NOTES: Immunohistochemical and/or in situ hybridization studies if performed in this PATIENT NAME: CHERYL GRAHAM PATHOLOGY DATE OF : 56 REPORT #: [id number] PHYSICIAN: KATRINA TRACY PCP: SANDRA BARRERA MD REPORT IS CONFIDENTIAL AND NOT TO BE RELEASED WITHOUT AUTHORIZATION [facility] [address] [place], [place] [address] Signed case included appropriate positive controls that reacted as expected. This test was developed and its performance characteristics determined by [facility]. It has not been cleared or approved by the U.S. Food and Drug Administration. The FDA has determined that such clearance or approval is not necessary. This test is used for clinical purposes. It should not be regarded as investigational or for research. [facility] is certified under the Clinical Laboratory Improvement Amendments of 1988 (CLIA) as qualified to perform high complexity clinical laboratory testing. PERFORMING LABORATORY: Technical component was performed by [facility], [address] [place] [address] (CLIA# [id number]). Professional interpretation was performed by [facility] [place], [address] [place] [address] (CLIA#: [id number]). Diagnostician: Arnaud Song MD Pathologist Electronically Signed 08/09/2024 Copies: ~ PATIENT NAME: CHERYL GRAHAM PATHOLOGY DATE OF : 56 REPORT #: [id number] PHYSICIAN: KATRINA PATHOLOGY PCP: SANDRA BARRERA MD REPORT IS CONFIDENTIAL AND NOT TO BE RELEASED WITHOUT AUTHORIZATION
== END 2024-08-07 11:43 | disposition home or self-care (01) ==
LOC: DS 07:55 → OPS 07:55 → DS 10:00 → OPS 10:00
PROVIDERS: ATTEND Obstetrics & Gynecology
PROC: 0UB98ZZ Excision of Uterus, Via Natural or Artificial Opening Endoscopic (ICD-10-PCS; principal; 2024-08-07 10:00)
DX: N84.0 Polyp of corpus uteri (principal); N95.0 Postmenopausal bleeding; Z88.8 Allergy status to other drugs, medicaments and biological substances
CPT/HCPCS: 00952; 88305; J0131; J1100; J1885; J2001; J2405; J2704; J3010; J7121

== ENCOUNTER 2025-03-27 13:45 | Observation (INO) | payer MEDICARE, OTHER ==
[~2025-03-27] VITALS: Ht 167.6 cm; Wt 112.8 kg
[~2025-03-27 13:45] MED LIST changes: -IBLOOD GLUCOSE TEST STRIP 1 EA TEST VI PRN; -LACTATED RINGER'S 1,000 ML IV SCH; -LIDOCAINE HCL 1% 5 ML SDV INJ ONE; -PROVENTIL HFA6.7 GM INH; +VENTOLIN HFA18 GM INH
[2025-03-27 14:33] LABS: BILIRUBIN, URINE NEGATIVE (negative); BLOOD/HGB, URINE NEGATIVE (Negative); KETONE, URINE NEGATIVE (Negative); LEUK ESTERASE, URINE NEGATIVE (negative); NITRITE, URINE NEGATIVE (negative)
[2025-03-27 14:47] LABS: BASOPHILS 0.2 % (0.1-1.2); EOSINOPHILS 0.7 % (0.7-5.8); HEMOGLOBIN 14.1 g/dL (11.2-15.7); LYMPHOCYTES 10.3 % (19.3-51.7); MCH 31.6 PG (25.6-32.2); MCHC 35.3 g/dL (32.2-35.5); MCV 89.7 fL (79.4-94.8); MONOCYTES 5.4 % (4.7-12.5); NEUTROPHILS 83.3 % (34.0-71.1); PLATELET COUNT 216 K/uL (182-369); RBC 4.46 M/uL (3.93-5.22)
[2025-03-27 15:06] LABS: ALBUMIN 3.5 g/dL (3.4-5.0); ALBUMIN/GLOBULIN RATIO 1.06 (1.1-2.4); ANION GAP 12.7 (7-21); BILIRUBIN, TOTAL 1.8 mg/dL (0.2-1.0); BUN/CREATININE RATIO 14.42 (6.0-28.6); CALCIUM 8.9 mg/dL (8.5-10.1); CREATININE, SERUM 1.04 mg/dL (0.55-1.02); POTASSIUM 3.7 mmol/L (3.5-5.1); PROTEIN, TOTAL 6.8 g/dL (6.4-8.2)
[2025-03-27] MEDS ORDERED: LIDOCAINE & ANTACID 35 ML BTL PO ONE (18:15)
[2025-03-27] MEDS ORDERED: ondansetron HCL 4 MG/2 ML VIAL IV ONE (18:15)
[2025-03-27] MEDS ORDERED: ondansetron HCL 4 MG/2 ML VIAL IV PRN ×2 (20:30→21:45)
[2025-03-27] MEDS ORDERED: LACTATED RINGER'S 1,000 ML IV SCH ×2 (20:30→21:45)
[2025-03-27] MEDS ORDERED: KETOROLAC TROMETHAMINE 30 MG/ML VIAL IV PRN ×2 (20:30→21:45)
[2025-03-27] MEDS ORDERED: MORPHINE SULFATE 10 MG/ML VIAL IV PRN ×2 (20:30→21:45)
[2025-03-27] MEDS ORDERED: FAMOTIDINE 20 MG/ 2 ML VIAL IV SCH ×2 (21:00→21:42)
--- NOTE | 2025-03-27 21:28 | NUR ---
REPORT RECEIVED FROM ER NURSE MANSOOR ORDONEZ. PATIENT TRANSFERRED TO RM 110 VIA STRETCHER ACCOMPANIED BY .
[2025-03-27 21:30] VITALS: BP 179/74
[2025-03-27] MEDS ORDERED: ALBUTEROL SULFATE 8 GM INH INH PRN (21:45)
[2025-03-27] MEDS ORDERED: ACETAMINOPHEN 500 MG TAB PO SCH (22:00)
[2025-03-27] MEDS ORDERED: CEFAZOLIN SODIUM 1 GM/10 ML SYR IV SCH (22:00)
[2025-03-27] MEDS ORDERED: CEFAZOLIN SODIUM 1 GM/10 ML SYR IV ONE (22:15)
--- NOTE | 2025-03-27 22:59 | NUR ---
TC TO DR. SANDS REGARDING PATIENT BLOOD PRESSURE. NEW ORDERS RECEIVED.
[2025-03-27] MEDS ORDERED: NITROGLYCERIN PACKET TOP PRN (23:00)
--- NOTE | 2025-03-27 23:10 | NUR ---
PRN MEDICATION ADMINISTERED FOR ELEVATED BP. PATIENT RESTING WITH CPAP IN PLACE, EDUCATION PROVIDED REGARDING MEDICATION. PATIENT DENIES QUESTIONS. NO FURTHER NEEDS, CALL LIGHT IN REACH.
[2025-03-28] VITALS (13 sets, daily range): BP systolic 134–168; BP diastolic 7–86
--- NOTE | 2025-03-28 00:19 | NUR ---
PATIENT RESTING WITH EYES CLOSED, RESPIRATIONS ARE EVEN AND UNLABORED. IVF CONTINUING TO INFUSE WITH NO DIFFICULTY. NO NEEDS IDENTIFIED, CALL LIGHT IN REACH.
--- NOTE | 2025-03-28 02:16 | NUR ---
ROUNDED ON PATIENT, PATIENT RESTING WITH EYES CLOSED, RESPIRATIONS EVEN AND UNLABORED, CPAP IN PLACE FOR SLEEP. IVF INFUSING WITHOUT DIFFICULTY. NO NEEDS IDENTIFIED, CALL LIGHT IN REACH.
--- NOTE | 2025-03-28 04:31 | NUR ---
PRN PAIN MEDICATION GIVEN FOR REPORTED . PAIN R/T HEADACHE, SEE EMAR. pT UP TO VOID, SBA AND BACK IN BED. IV SITE WNKL, FLUIDS INFUSING WNL. CALL LIGHT IN REACH.
--- NOTE | 2025-03-28 04:44 | NUR ---
TAMALE MAKER ONTAINED VITALS AND OUTPUT. PT STATES NO NEEDS AT THIS TIME. CALL LIGHT WITHIN REACH.
--- NOTE | 2025-03-28 05:15 | NUR ---
PATIENT RESTING IN BED, TOPICAL MEDICATION REMOVED FROM PATIENT. PATIENT DECLINES FURTHER NEEDS, REPORTS PAIN HAS IMPROVED. CALL LIGHT IN REACH. PATIENT WEARING CPAP FOR SLEEP.
[2025-03-28 05:35] LABS: BASOPHILS 0.8 % (0.1-1.2); EOSINOPHILS 2.3 % (0.7-5.8); HEMATOCRIT 37.6 % (34.1-44.9); HEMOGLOBIN 12.9 g/dL (11.2-15.7); LYMPHOCYTES 26.3 % (19.3-51.7); MCH 31.7 PG (25.6-32.2); MCHC 34.3 g/dL (32.2-35.5); MCV 92.4 fL (79.4-94.8); MONOCYTES 7.6 % (4.7-12.5); NEUTROPHILS 62.7 % (34.0-71.1); PLATELET COUNT 192 K/uL (182-369); RBC 4.07 M/uL (3.93-5.22)
[2025-03-28 05:51] LABS: ALBUMIN/GLOBULIN RATIO 1.03 (1.1-2.4); BILIRUBIN, TOTAL 1.7 mg/dL (0.2-1.0); BUN/CREATININE RATIO 10.37 (6.0-28.6); CALCIUM 8.2 mg/dL (8.5-10.1); CREATININE, SERUM 1.06 mg/dL (0.55-1.02); PROTEIN, TOTAL 5.9 g/dL (6.4-8.2)
[2025-03-28] MEDS ORDERED: CEFAZOLIN SODIUM 2 GM/20 ML SYR IV SCH (06:00)
--- NOTE | 2025-03-28 06:12 | NUR ---
SCHEDULED MEDICATION ADMINISTERED PER ORDER, IVF INFUSING PER ORDER. SCHEDULED TYLENOL HELD D/T NPO STATUS. PATIENT CONTINUES TO REST IN BED, RESPIRATIONS ARE EVEN AND UNLABORED, CPAP IN PLACE FOR SLEEP. PATIENT DENIES ANY NEEDS, CALL LIGHT IN REACH
--- NOTE | 2025-03-28 07:00 | NUR ---
Pt report received from MANSOOR Muhammad. Pt is resting supine in bed, CPAP on. Shades drawn at pt's request and pt provided with a cool wash cloth as well. White board updated. Advised pt that I will review her medlist to see if her home imitrex will be administered today. Call light in reach, side rails up x4. Lights off.
[2025-03-28] MEDS ORDERED: TRULICITY3 MG/0.5 M SUB-Q (08:27)
[2025-03-28] MEDS ORDERED: SUMATRIPTAN SU100 MG PO (08:36)
[2025-03-28] MEDS ORDERED: ALBUTEROL SULFATE 0.083% 3 ML VIAL INH PRN (08:45)
[2025-03-28] MEDS ORDERED: DULOXETINE HCL 20 MG CAP PO SCH (09:00)
[2025-03-28] MEDS ORDERED: MONTELUKAST SODIUM 10 MG TAB PO SCH (09:00)
[2025-03-28] MEDS ORDERED: estradioL 1 MG TAB PO SCH (09:00)
[2025-03-28] MEDS ORDERED: ENOXAPARIN SODIUM 40 MG/0.4 ML SYR SUB-Q SCH (09:00)
--- NOTE | 2025-03-28 09:20 | NUR ---
Spoke with Katherin and spouse. Pt lives in a house with 1 step. No issues getting in or out of the home. Pt is active and states she has plans to weed eat her hill this weekend. 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 They drive. Pt denies any needs and does not use any DME. Per pt she had an US, CT, and an MRI this am. They are waiting for MRI results.
[2025-03-28] MEDS ORDERED: FLUTICASONE-SA1 EAC3 INH (09:55)
--- NOTE | 2025-03-28 09:55 | NUR ---
PC from MRI to advise this RN that the pt is experiencing nausea. Advised master control supervisor that I will bring the pt zofran and pepcid per emar. Upon my arrival to the MRI room, I removed all items on my person that contained metal, and then entered the room (3 techs present, as well as pt). The pt was located sitting up with legs dangling, on the stretcher. She appears tearful. Pt states her pain is related to her migraine headache at this time and states that this is causing nausea. She advises that she normally takes imitrex at home and that she starts with 50mg PO. She states that if she were at home feeling like this, she would take 100mg. IV site assessed, pt educated to advise if she notices any swelling, redness around the site, or if she notices any leaking or has any pain. Pt verbalizes understanding. IV Flushed with 5ml NS, patent, no return, no c/o pain or burning. Administered 4mg Zofran slow IVP and 20mg famotidine slow IVP per emar. IV flushed with 5ml NS in between meds and at the completion. IV S/L at this time. Returned to floor while pt in MRI.
--- NOTE | 2025-03-28 09:56 | NUR ---
MED REC COMPLETE
--- NOTE | 2025-03-28 10:01 | NUR ---
UR CLINICAL REVIEW: 2 MN FOR VERSALUS-PER WOOD MECHANIST MEETS OBS FOR ACUTE CHOLECYSTITIS WITH POSSIBLE NEOPLASM MEDICARE OBS 03/27/25 @ 2144 ORDER MATCHES REG NO AUTH REQUIRED PER MEDICARE GUIDELINES DISCHARGE PENDING MRI AND FURTHER EVAL 03/29/25
--- NOTE | 2025-03-28 10:30 | NUR ---
PC to MRI to check on this pt. Spoke with Osito, who states that the pt is feeling alot better at this time.
[2025-03-28] MEDS ORDERED: SEVOFLURANE 250 ML BTL INH ONE (10:43)
[2025-03-28] MEDS ORDERED: SUMAtriptan succinate 50 MG TAB PO ONE (11:00)
--- NOTE | 2025-03-28 11:09 | NUR ---
WHEN I WENT INTO THE ROOM THIS MORING. PATIENT SAID SHE NEEDED TO USE THE BATHROOM. THAN SHE WANTED TO WASH HER FACE AND BRUSH HER TEETH. SO I GOT HER A TOOTH BRUSH AND TOOTH PASTE AND HAND TOWEL AND WASH CLOTH. BED LINENS CHANGED.
--- NOTE | 2025-03-28 11:14 | NUR ---
PC to Day Surgery, spoke with Jonh (sp?) who advised she would ask Dr. Gibbs about my question about pt's Imitrex and A.M. meds. Received a PC from Dr. Gibbs who gave a verbal order to give A.M. PO Meds and to order 100mg PO Imitrex to give now. I pulled and offered 2mg MSO4 IV while we waited for the Imitrex order to be verified; however, the pt refused Morphine and stated she will take her home imitrex rather than wait any longer. Pt's present after RN exited the room to document MSO4 waste, and he states that she did take 100mg PO Imitrex that she had from home in her purse. Dr. Gibbs was made aware that she had her home imitrex available to her.
--- NOTE | 2025-03-28 12:15 | NUR ---
In with pt with Dr. Gibbs rounding. At Dr. Gibbs's request, Gallbladder handbook provided to pt. Pt also states she would like to try the morphine as her headache is not getting better after taking imitrex.
--- NOTE | 2025-03-28 13:09 | NUR ---
In with pt for hourly rounding, med reassessment. Pt states her migraine is better, but she wants to nap and keeps getting interrupted. Aleks from RT in with pt to conduct an EKG per orders. Wipe down will be done shortly.
--- NOTE | 2025-03-28 14:02 | NUR ---
Reviewed Dr. ngo, pt scheduled for surgery today at 1600.
[2025-03-28] MEDS ORDERED: SODIUM CHLORIDE 0.9% 40 ML IV ONE (16:38)
[2025-03-28] MEDS ORDERED: iopamidoL 30 ML VIAL ONE (16:38)
[2025-03-28] MEDS ORDERED: fentaNYL citrate 50 MCG/ML SDV IV PRN (17:15)
[2025-03-28] MEDS ORDERED: IBLOOD GLUCOSE TEST STRIP 1 EA TEST VI PRN (17:15)
[2025-03-28] MEDS ORDERED: ondansetron HCL 4 MG/2 ML VIAL IV PRN (17:15)
[2025-03-28] MEDS ORDERED: NALOXONE HCL 0.4 MG SYR IV PRN (17:15)
[2025-03-28] MEDS ORDERED: MIDAZOLAM HCL 2 MG/2 ML VIAL ONE (17:19)
[2025-03-28] MEDS ORDERED: LIDOCAINE HCL 2% 5 ML SDV ONE (17:20)
[2025-03-28] MEDS ORDERED: SUGAMMADEX SODIUM 200 MG/2 ML ML ONE (17:20)
[2025-03-28] MEDS ORDERED: fentaNYL citrate 100 MCG/2 ML VIAL ONE (17:20)
[2025-03-28] MEDS ORDERED: ROCURONIUM BROMIDE 50 MG/5 ML SYR ONE (17:20)
[2025-03-28] MEDS ORDERED: LIDOCAINE HCL 1% 30 ML SDV ONE (17:20)
[2025-03-28] MEDS ORDERED: propofoL 200 MG/20 ML VIAL ONE (17:21)
[2025-03-28] MEDS ORDERED: dexmedeTOMIDine HCl 200 MCG/2 ML VIAL ONE (17:23)
[2025-03-28] MEDS ORDERED: KETAMINE in NS 50 MG/5 ML SYR ONE (17:23)
--- NOTE | 2025-03-28 17:40 | HP ---
[facility] [address], [place] [address] Signed ADMISSION DATE: 03/27/2025 REASON FOR ADMISSION: Acute calculous cholecystitis with questionable possible neoplasm of gallbladder. HISTORY OF PRESENT ILLNESS: This 65-year-old white woman accompanied by her , Xu, whom I have known for many years. She was evaluated by Dr. Martines at approximately 4:30 p.m. for complaints of abdominal pain and vomiting. She had no problems last night, but in the morning she woke up and had breakfast. An hour later had abdominal bloating and pain. It worsened throughout the day. Her pain is a stabbing type pain in the right subcostal area and ulcerated to the back. Evaluation in the emergency room included lab studies, which showed a normal CBC and a chem profile with a creatinine of 1.04, but total bilirubin 1.8, AST 269, ALT 194, and alkaline phosphatase 87. A gallbladder ultrasound was performed, which definitely showed gallstones and no sign of intrahepatic ductal dilatation, but did show question of a polypoid lesion within the gallbladder measuring 2.9 cm with internal vascularity. There are no signs of hepatic lesions. At my request, a CT scan was performed (MRI not available at the hour needed), which shows no sign of hepatic lesions and indeed shows no sign of gallbladder lesion. She is admitted for further evaluation and care for antibiotics, pain relief, anticipating definitive surgical treatment depending on determinations of the gallbladder lesion. PAST MEDICAL HISTORY: Notable for obesity as well as asthma for which she takes albuterol inhaler from time to time. She has had tonsillectomy and D and C, but no abdominal operations in any other way. She does not smoke or drink alcohol nor does she use drugs. She also has migraines for which she takes Imitrex and self-described depression. MEDICINES: At admission include: 1. Estradiol 1 mg p.o. daily. 2. Montelukast (Singulair) 10 mg daily. 3. Albuterol inhaler as needed. 4. Sumatriptan (Imitrex) 25 mg p.o. p.r.n. headaches. 5. Fluticasone. 6. Advair Diskus inhaled daily. 7. Duloxetine. 8. Cymbalta 20 mg daily. Electronically Signed By: ALISTAIR SANDS MD 03/28/25 1740 PATIENT NAME: CHERYL GRAHAM HISTORY AND PHYSICAL DATE OF : 56 REPORT #: [id number] PHYSICIAN: ALISTAIR SANDS MD PCP: JOHN RAINES MD REPORT IS CONFIDENTIAL AND NOT TO BE RELEASED WITHOUT AUTHORIZATION [facility] [address] [place] [address] Signed 9. Multivitamin one p.o. daily. 10. Progesterone 200 mg p.o. daily. SOCIAL HISTORY: She is . She has never had children. Her , Xu, accompanies her. He is a local revenue accountant. REVIEW OF SYSTEMS: She denies any shortness of breath or chest pain. Her right upper abdominal pain has improved since the hospital evaluation and treatment though still remains. PHYSICAL EXAMINATION: GENERAL: Obese white woman who does not look systemically toxic at this time. VITAL SIGNS: Most recent vital signs showed a pulse of 74, respirations 16, blood pressure 162/73, O2 saturation on room air 95%. NECK: Trachea is midline. CHEST: Clear. HEART: Regular without murmur. ABDOMEN: Obese and only mildly tender in the right subcostal area. There is no ascites. EXTREMITIES: Show no clubbing, cyanosis, or edema. ASSESSMENT: I reviewed her labs and imaging studies in detail. If there is a vascular tumor of the gallbladder and its location is of importance, particularly should it be adjacent to the liver. On my review of the ultrasound, it appears opposite to the liver. The CT scan does not show a neoplasm of the gallbladder and the more optimal study for that determination is an MRI. I obtained the CT scan in large part to assess if there is metastatic disease to the liver or periportal adenopathy. There is one small lymph node in the periportal area 0.5 cm that is noted on CT. I explained to the patient and her our plan for MRI tomorrow to evaluate the gallbladder more fully and assess if there is in fact a neoplasm of the gallbladder. Although, cholecystectomy will be necessary for her symptomatic gallstones and of course if there is a neoplasm of the gallbladder. Various other preoperative interventions might be required should neoplasm in fact be present and not optimally positioned within the gallbladder. I explained this to them. Alistair Sands MD Electronically Signed By: ALISTAIR SANDS MD 03/28/25 1740 PATIENT NAME: CHERYL GRAHAM HISTORY AND PHYSICAL DATE OF : 56 REPORT #: [id number] PHYSICIAN: ALISTAIR SANDS MD PCP: JOHN RAINES MD REPORT IS CONFIDENTIAL AND NOT TO BE RELEASED WITHOUT AUTHORIZATION [place] [phone] Signed ROBIN/KEMI /[id number] cc: Dr. Bobbi Raines MD Copies: JOHN RAINES MD ~ Electronically Signed By: ALISTAIR SANDS MD 03/28/25 1740 PATIENT NAME: SANTOSCHERYL HISTORY AND PHYSICAL DATE OF : 56 REPORT #: [id number] PHYSICIAN: ALISTAIR SANDS MD PCP: JOHN RAINES MD REPORT IS CONFIDENTIAL AND NOT TO BE RELEASED WITHOUT AUTHORIZATION
[2025-03-28] MEDS ORDERED: CEFAZOLIN SODIUM 2 GM/20 ML SYR IV ONE (17:45)
[2025-03-28] MEDS ORDERED: DEXAMETHASONE SOD PHOS 4 MG/ML VIAL ONE (18:30)
[2025-03-28] MEDS ORDERED: KETOROLAC TROMETHAMINE 30 MG/ML VIAL ONE (18:30)
[2025-03-28] MEDS ORDERED: ondansetron HCL 4 MG/2 ML VIAL ONE (18:30)
--- NOTE | 2025-03-28 19:16 | NUR ---
03/28/251915 Kadie Wright 1847- PT ARRIVES TO PACU. BREATHING IS EVEN AND UNLABORED. ORAL AIRWAY IN PLACE AND ON 6L OF O2 VIA MASK. PT IS NONREACTIVE TO VERBAL AND TACTILE STIMULI. LR INFUSING. ABBDOMEN IS SOFT AND NON DISTENDED AND SURGICAL SITES SHOW A SMALL AMOUNT OF RED COLORED DRAINAGE. SCDS IN PLACE. MONITORS PUT IN PLACE AND VITAL SIGNS OBTAINED. 1900- PT HEAD ADJUSTED ON PILLOW AND PT BEGINS SWALLOWING.PT OPENS HER EYES AND BEGINS TO LOOK AROUNG. ORAL AIRWAY REMOVED. 1901- PT IS TALKING WITH RN. PT DENIES PAIN AND NAUSEA. PT IS ORIENTED TO PACU. PT ASKING QUESTIONS AND THEY ARE ANSWERED. PILLOW PUT IN PLACE AND DIRECTIONS ABOUT SPLINTING WERE DISCUSSED. 1911- PT DENIES PAIN AND NAUSEA. PT ENCOURAGED TO BREATHE DEEPLY WITH O2 SATS DECREASING TO 88. PT IS ABLE TO FOLLOW COMMANDS AND O2 STS INCREASE TO LOW 90S. PT REPORTS FEELING "TIRED". PT RESTING WITH EYES CLOSED.
--- NOTE | 2025-03-28 19:50 | NUR ---
REPORT RECEIVED FROM RABBLE FURNACE TENDERKALIN. PATIENT DROWSY, BUT WAKES WITH VERBAL CUES. X4 LAP SITES, STERISTRIPS WITH MINIMAL SHADOWING. RESPIRATIONS ARE EVEN AND UNLABORED. CPOX AT BEDSIDE, SCD ON. PATIENT DENIES PAIN, NO NEEDS. CALL LIGHT IN REACH, AT BEDSIDE.
[2025-03-28] MEDS ORDERED: OXYCODONE/APAP 7.5/325 TAB PO PRN (20:15)
--- NOTE | 2025-03-28 20:22 | EKG ---
[facility] [address] [facility] [place] [address] Signed Normal sinus rhythm Cannot rule out Anterior infarct , age undetermined Abnormal ECG Confirmed by Patito Garcia DO ([id number]) on 03/28/2025 8:22:23 PM Electronically Signed By: PATITO GARCIA DO 03/28/252021 PATIENT NAME: CHERYL GRAHAM Electrocardiogram DATE OF : 56 PHYSICIAN: PATITO GARCIA DO REPORT #: [id number] REPORT IS CONFIDENTIAL AND NOT TO BE RELEASED WITHOUT AUTHORIZATION
--- NOTE | 2025-03-28 20:26 | EKG ---
[facility] [address] [facility] [place] [address] Signed Unusual P axis, possible ectopic atrial rhythm Low voltage QRS Inferior infarct , age undetermined Abnormal ECG When compared with ECG of 27-MAR-2025 14:01, (Unconfirmed) Ectopic atrial rhythm has replaced Sinus rhythm Inferior infarct is now present Nonspecific T wave abnormality now evident in Inferior leads Confirmed by Patito Garcia DO ([id number]) on 03/28/2025 8:26:33 PM Electronically Signed By: PATITO GARCIA DO 03/28/252025 PATIENT NAME: CHERYL GRAHAM Electrocardiogram DATE OF : 56 PHYSICIAN: PATITO GARCIA DO REPORT #: [id number] REPORT IS CONFIDENTIAL AND NOT TO BE RELEASED WITHOUT AUTHORIZATION
--- NOTE | 2025-03-28 20:43 | NUR ---
VS OBTAINED AND RECORDED. PATIENT RESTING IN BED, AT BEDSIDE. CPAP IN PLACE. PRN NAUSEA MEDICATION ADMINISTERED, SEE EMAR. NO FURTHER NEEDS AT THIS TIME. IVF CONTINUING TO INFUSE PER ORDER. CALL LIGHT IN REACH
--- NOTE | 2025-03-28 22:09 | NUR ---
VS OBTAINED AND RECORDED. SBP ELEVATED ABOVE 160, SEE VITALS DOCUMENTATION. PATIENT DECLINES PRN MEDICATION FOR HYPERTENSION. SCHEDULED MEDICATIONS GIVEN. PATIENT REPORTS 1/10 PAIN AT THIS TIME, DENIES ANY FURTHER NEEDS, CALL LIGHT IN REACH.
--- NOTE | 2025-03-28 22:54 | NUR ---
REAL ESTATE DEVELOPER AND RN OBTAINED VITALS. PT STATED NEED TO USE BATHROOM. REAL ESTATE DEVELOPER SBA TO BATHROOM. PT VOIDED AND ASSISTED BACK TO BED. PT STATES NO FURTHER NEEDS AT THIS TIME. CALL LIGHT WITHIN REACH.
[2025-03-28] MEDS ORDERED: hydrALAZINE HCL 20 MG/ML VIAL IV PRN (23:00)
--- NOTE | 2025-03-28 23:32 | NUR ---
CALL LIGHT ANSWERED. PT WANTED TO BE REPOSTIONED ONTO HER SIDE. THIS AGRICULTURAL SALES REPRESENTATIVE AND MANSOOR BOB HELPED PT TO ROLL ONTO HER LEFT SIDE AND PLACE A PILLOW UNDER HER RIGHT HIP. PT STATES THAT SHE WAS COMFORTABLE. NO FURTHER NEEDS STATED AT THIS TIME. CALL LIGHT WITHIN REACH AND PT CPAP MASK ON.
[2025-03-29] VITALS (10 sets, daily range): BP systolic 146–175; BP diastolic 64–82
--- NOTE | 2025-03-29 00:03 | NUR ---
IN ROOM TO COLLECT VS PER REQUEST OF PRIMARY RN, VS COLLECTED AND STABLE. pt HAS CPAP MASK IN PLACE, DENIES NEEDS OR CONCERNS, CALL LIGHT IN REACH.
[2025-03-29] MEDS ORDERED: CEFAZOLIN SODIUM 2 GM/20 ML SYR IV SCH (02:00)
--- NOTE | 2025-03-29 04:20 | NUR ---
PATIENT RESTING WITH EYES CLOSED, RESPIRATIONS ARE EVEN AND UNLABORED. WEARING CPAP FOR SLEEP. CPOX AT BEDSIDE. IVF CONTINUING TO INFUSE PER ORDER. NO NEEDS IDENTIFIED, CALL LIGHT IN REACH
--- NOTE | 2025-03-29 06:11 | NUR ---
CUSTOMER BUSINESS MANAGER OBTAINED VITALS AND I&O. PT UP TP BATHROOM. PT STATES NO FURTHER NEEDS AT THIS TIME AND IS BACK IN BED. CALL LIGHT IWTHIN REACH.
--- NOTE | 2025-03-29 06:54 | NUR ---
PATIENT GIVEN SCHEDULED MEDICATION AND PRN IV MEDICATION FOR HYPERTENSION. PATIENT REPORTS 1/10 PAIN, SHE DENIEDS ANY NEEDS. IVF CONTINUING TO INFUSE PER ORDER. CALL LIGHT IN REACH.
--- NOTE | 2025-03-29 07:07 | NUR ---
Pt report received from MANSOOR Muhammad. Pt is resting supine in bed, using her cell phone. She reports her pain is a 1 out of 10 and that she slept well. Pt denies any needs at this time and states that in about an hour she would like to take a walk. White board updated. Call light in reach.
--- NOTE | 2025-03-29 07:31 | NUR ---
UR SUPERVISOR [employer]: 2 MN FOR VERSAL[employer]-PER GM/SVP GLOBAL PUBLISHER BUSINESS MEETS OBS FOR [place] MEDICARE OBS 03/27/25 @ 2144 ORDER MATCHES REG NO AUTH REQUIRED PER MEDICARE GUIDELINES LATE SURGICAL CASE. ANTICIPATE DC TODAY
[2025-03-29] MEDS ORDERED: IBUPROFEN 600 MG TAB PO PRN (07:45)
[2025-03-29] MEDS ORDERED: FAMOTIDINE 20 MG TAB PO SCH (09:00)
--- NOTE | 2025-03-29 09:27 | NUR ---
PC to Dr. Gibbs's cell phone with no answer. PC to [facility] and left a message for them to give to Dr. Gibbs that the pt is tearful and c/o migraine and wants to go home. Requested a verbal order to restart pt's home imitrex dose. MANSOOR Villar advised they would pass along the message/request.
[2025-03-29] MEDS ORDERED: SUMAtriptan succinate 50 MG TAB PO PRN (10:15)
--- NOTE | 2025-03-29 10:16 | NUR ---
Received PC from Dr. Gibbs who gave the verbal order to restart pt's home imitrex dose PRN as she takes it at home.
--- NOTE | 2025-03-29 10:26 | NUR ---
Spoke with Katherin. She is tearful and wanting to go home. C/o migrain. I updated the charge nurse and she will check for migrain medication for pt. Pt plans on dc to home today with her spouse.
--- NOTE | 2025-03-29 11:00 | NUR ---
Pt up to ambulate hallway for several laps, with her . Tolerated activity well. She states she feels much better after taking the imitrex. Pt provided with an ice pack for her abdomen, and a hot pack for the back of her neck. Linen change done at this time.
[2025-03-29] MEDS ORDERED: LOSARTAN POTASSIUM 50 MG TAB PO SCH (12:45)
[2025-03-29] MEDS ORDERED: LOSARTAN POTASS50 MG PO (12:47)
[2025-03-29] MEDS ORDERED: IBUPROFEN600 MG PO (12:48)
[2025-03-29] MEDS ORDERED: OXYCODON-ACETA1 EAC2 PO (12:48)
[2025-03-29] MEDS ORDERED: ACETAMINOPHEN500 MG PO (12:48)
--- NOTE | 2025-03-29 15:21 | OR ---
[facility] [address] [place], [place] [address] Signed DATE OF OPERATION: 03/28/2025 SURGEON: Alistair Sands MD PREOPERATIVE DIAGNOSES: 1. Acute calculous cholecystitis. 2. Morbid obesity. POSTOPERATIVE DIAGNOSES: 1. Acute calculous cholecystitis. 2. Morbid obesity. PROCEDURES: 1. Laparoscopic cholecystectomy with intraoperative cholangiogram. 2. Surgeon-directed fluoroscopy. ANESTHESIA: General endotracheal; Audra Derek, CHIEF REVENUE OFFICER; and local 10 mL of 0.25% Marcaine with epinephrine. INDICATION: This 65-year-old white woman presented to the emergency room yesterday with severe right upper abdominal pain. A gallbladder ultrasound was performed, which showed large gallstones and findings suggestive of acute cholecystitis. Notably, she was also thought to have a hypervascular mass in the gallbladder wall. A CT scan was performed which showed no such finding and certainly no abnormality of the liver particularly. An MRCP was performed today after being admitted overnight with intravenous fluids and IV pain medication, which ruled out any sign of neoplasm of the gallbladder. The ultrasound finding was an artifact . She is admitted at this time to undergo cholecystectomy preferred by laparoscopic approach. The risk of bleeding, infection, bile duct injury, need for open procedure, and other unforeseen complications was reviewed in detail. She understands and wished to proceed. FINDINGS: The gallbladder was tense and distended and acutely inflamed and edematous. The liver did have mild fatty infiltration. Decompression of the gallbladder showed a dark bile. Cholecystectomy was performed and cholangiogram showed no sign of filling defect or Electronically Signed By: ALISTAIR SANDS MD 03/29/25 1521 PATIENT NAME: CHERYL GRAHAM OPERATIVE REPORT DATE OF : 56 REPORT #: [id number] PHYSICIAN: ALISTAIR SANSD MD PCP: JOHN TIWARI MD REPORT IS CONFIDENTIAL AND NOT TO BE RELEASED WITHOUT AUTHORIZATION [facility] [address] [place], [place] [address] Signed other abnormality. The gallbladder once opened had large stones, at least 2 cm in size and 2 of them in total, and no evidence of mucosal abnormality otherwise. There were no complications. DESCRIPTION OF PROCEDURE: The patient was brought to the operating room, given a general endotracheal anesthetic. Preoperative antibiotic Ancef was re-dosed. Sequential compression device stockings were used. After satisfactory general endotracheal anesthesia, the abdomen was prepared with a chlorhexidine solution and draped sterilely. An infraumbilical incision was made and using an open Sha cannula technique, pneumoperitoneum was achieved to a level of 14 mmHg of carbon dioxide gas. Intra-abdominal inspection showed no sign of ascites or carcinomatosis. The fundus of the gallbladder was visualized and found to be tense and inflamed. The liver had mild fatty infiltration. Three additional trocars were placed in usual configuration in the subxiphoid, right midclavicular, and right anterior axillary line. The gallbladder was grasped, but was poorly able to be purchased and on that basis, decompressed with needle device showing dark green bile. The puncture site was grasped and elevated cephalad exposing the gallbladder well. The gallbladder was grasped laterally and blunt electrocautery dissection was used to dissect free the gallbladder and the cystic duct. Once the anatomy was well confirmed and the critical view of safety maintained, a clip was applied across the gallbladder cystic duct junction and a transverse choledochotomy made in the cystic duct. Egress of small amount of bile was noted. Using an Miller type cholangiocatheter, intraoperative cholangiography was undertaken showing free flow of contrast in the biliary tree with prompt emptying into the duodenum. There was no sign of other abnormality. The cystic duct was triply clipped and divided. The gallbladder was then dissected free in a retrograde fashion using electrocautery. The gallbladder once extracted was opened on the back table and found to have at least 2 large gallstones, 2 cm each in size. No sign of mucosal lesion or neoplasm. Examination of the subhepatic space showed no sign of bile leak, bleeding, or other problems. The trocars removed under direct visualization showing no sign of bleeding. The infraumbilical fascial incision was reapproximated with interrupted 0 Vicryl suture. 10 mL of 0.25% Marcaine with epinephrine was injected locally. The skin was then closed with interrupted 3-0 Vicryl. Steri-Strips were applied. She was ultimately extubated and transferred to the recovery room in good condition having suffered no complications. Sponge, needle, and instrument counts were reported as correct x3. Alistair Sands MD Electronically Signed By: ALISTAIR SANDS MD 03/29/25 1521 PATIENT NAME: CHERYL GRAHAM OPERATIVE REPORT DATE OF : 56 REPORT #: [id number] PHYSICIAN: ALISTAIR SANDS MD PCP: JOHN TIWARI MD REPORT IS CONFIDENTIAL AND NOT TO BE RELEASED WITHOUT AUTHORIZATION [address] [address] Signed /[facility] /[id number] cc: MD Dr. Bobbi Lenz Copies: JOHN TIWARI MD ~ Electronically Signed By: ALISTAIR SANDS MD 03/29/25 1521 PATIENT NAME: [facility] OPERATIVE REPORT DATE OF : 56 REPORT #: [id number] PHYSICIAN: ALISTAIR SANDS MD PCP: JOHN TIWARI MD REPORT IS CONFIDENTIAL AND NOT TO BE RELEASED WITHOUT AUTHORIZATION
--- NOTE | 2025-03-29 15:21 | DS ---
[facility] [address] [place], [place] [address] Signed ADMISSION DATE: 03/27/2025 DISCHARGE DATE: 03/29/2025 REASON FOR ADMISSION: This morbidly obese 65-year-old white woman was evaluated by Dr. Martines in the emergency room for complaints of abdominal pain and vomiting. Emergency room evaluation included lab studies showing somewhat elevated liver enzymes and gallbladder ultrasound performed showing gallstones and possible vascular neoplasm of the gallbladder itself. A CT scan was performed, which did not confirm the mass. She is admitted for acute calculous cholecystitis for further evaluation and care. PERTINENT PHYSICAL EXAMINATION: GENERAL: Showed a morbidly obese white woman with no signs of toxicity. VITAL SIGNS: Pulse is 74, respirations 16, blood pressure 162/73, O2 saturation 95% on room air. CHEST: Clear. HEART: Regular without murmur. ABDOMEN: Obese and mildly tender in the right subcostal area. There is no ascites. HOSPITAL COURSE: Mindful of the possibility of neoplasm of the gallbladder in conjunction with acute calculous cholecystitis, an MRCP was performed. This confirmed there was no evidence of neoplasm of the gallbladder. On March 28, 2025, she underwent laparoscopic cholecystectomy. Given her morbid obesity, the operation was challenging, but was accomplished safely. Cholangiogram was normal as well. The gallbladder had at least two large stones and no sign of mucosal abnormality. Her postoperative course was rather unremarkable. She did have recurrent migraine headaches, which she suffers from, for which Imitrex was given with some benefit. Recently, she had hypertension. Management with nitro paste was rather uncomfortable for her as relates to her headaches. Her blood pressure was as high as 175/79, mostly running in 160 range. Hydralazine was similarly uncomfortable for her when given on a p.r.n. basis. She will be started on losartan 50 mg p.o. daily. She is anticipating a followup with her usual provider, Dr. Raines in April anyway. She is discharged home feeling much improved, tolerating a regular diet with minimal incisional pain and incision is healing well. Electronically Signed By: ALISTAIR SANDS MD 03/29/25 1521 PATIENT NAME: CHERYL GRAHAM DISCHARGE SUMMARY DATE OF : 56 REPORT #: [id number] PHYSICIAN: ALISTAIR SANDS MD PCP: JOHN RAINES MD REPORT IS CONFIDENTIAL AND NOT TO BE RELEASED WITHOUT AUTHORIZATION [facility] [address] [place], [place] [address] Signed DISCHARGE MEDICATIONS: 1. Will include losartan 50 mg p.o. daily #30, refill two. 2. Ibuprofen 600 mg p.o. q.6 hours as needed for pain #30, refill one. 3. Percocet 7.5/325 1-2 p.o. q.6 hours p.r.n. pain #6. 4. Tylenol plain 500 mg two tablets p.o. q.6 hours p.r.n. pain #30. 5. She will continue usual medications including montelukast, Singulair tablet, albuterol inhaler, estradiol 1 mg tablets daily. 6. Cymbalta 20 mg two tablets p.o. daily. 7. Multivitamin one p.o. daily. 8. Progesterone 200 mg capsule oral at bedtime. 9. Trulicity 3 mg subcutaneously weekly on Sundays. 10. Imitrex, sumatriptan 100 mg tablet 1/2 to 1 tablet p.o. q.12 hours as needed for headache. 11. Fluticasone inhaler every day. DISCHARGE DIAGNOSES: 1. Acute calculous cholecystitis. 2. Morbid obesity. 3. History of migraines. 4. Hypertension (not yet treated fully). 5. Postmenopausal state. 6. Asthma. 7. Depression. 8. Status post laparoscopic cholecystectomy with intraoperative cholangiogram March 28, 2025 for calculus cholecystitis. MD ROBIN Smith/[facility] /[id number] cc: Dr. Bobbi Raines Electronically Signed By: ALISTAIR SANDS MD 03/29/25 1521 PATIENT NAME: CHERYL GRAHAM DISCHARGE SUMMARY DATE OF : 56 REPORT #: [id number] PHYSICIAN: ALISTAIR SANDS MD PCP: JOHN RAINES MD REPORT IS CONFIDENTIAL AND NOT TO BE RELEASED WITHOUT AUTHORIZATION [facility] [address] [place] [address] [place], [place] [address] Signed Copies: ~ Electronically Signed By: ALISTAIR SANDS MD 03/29/25 1521 PATIENT NAME: CHERYL GRAHAM [facility] DISCHARGE SUMMARY DATE OF : 56 REPORT #: [id number] PHYSICIAN: ALISTAIR SANDS MD PCP: JOHN RAINES MD REPORT IS CONFIDENTIAL AND NOT TO BE RELEASED WITHOUT AUTHORIZATION
--- NOTE | 2025-04-02 13:44 | PATH ---
[facility] [address] [place], [place] [address] Signed SPECIMEN(S): A GALLBLADDER AND CONTENTS SPECIMEN SOURCE: A. GALLBLADDER AND CONTENTS CLINICAL HISTORY: Acute calculus cholecystitis FINAL PATHOLOGIC DIAGNOSIS: Gallbladder and contents: - Chronic cholecystitis - Cholelithiasis BB MICROSCOPIC EXAMINATION: Histologic sections of all submitted blocks are examined by light microscopy. These findings, together with the gross examination, support the pathologic diagnosis. Histologic sections of all submitted blocks are examined by light microscopy. These findings, together with the gross examination, support the pathologic diagnosis. GROSS DESCRIPTION: The specimen, labeled and designated "L[place], gallbladder and contents," is received in formalin and consists of Specimen: Previously opened gallbladder. Dimensions: 8.5 x 3.3 x 1.5 cm. Serosa: Green-tolbert and smooth. Cystic Duct: Unobstructed, margin inked black and shaved. Calculi: Two yellow-tolbert rounded/multifaceted calculi (1.9 x 1.7 x 1.7 cm, and 2.1 x 2.0 x 2.0 cm). Mucosa: Green and velvety. Wall thickness: 0.2-0.3 cm. Lymph node: No pericystic lymph nodes are grossly identified. Additional: None. English Composition Instructor sections are submitted in (A1). VB (under the direct supervision of a pathologist) The Gross Description was prepared using a voice recognition system. The report was reviewed for accuracy; however, sound-alike word errors, addition and/or deletions may occur. If there is any question about this report, please contact Client Services. PATIENT NAME: CHERYL GRAHAM PATHOLOGY DATE OF : 56 REPORT #: [id number] PHYSICIAN: KATRINA TRACY PCP: JOHN TIWARI MD REPORT IS CONFIDENTIAL AND NOT TO BE RELEASED WITHOUT AUTHORIZATION [facility] [address] [place], [place] [address] Signed ADDITIONAL NOTES: Immunohistochemical and/or in situ hybridization studies if performed in this case included appropriate positive controls that reacted as expected. This test was developed and its performance characteristics determined by [facility]. It has not been cleared or approved by the U.S. Food and Drug Administration. The FDA has determined that such clearance or approval is not necessary. This test is used for clinical purposes. It should not be regarded as investigational or for research. [facility] is certified under the Clinical Laboratory Improvement Amendments of 1988 (CLIA) as qualified to perform high complexity clinical laboratory testing. PERFORMING LABORATORY: Technical component was performed by [facility], [address] [place] [id number] (CLIA# [id number]). Professional interpretation was performed by [facility] - [address] [place] [address] (CLIA#: [id number]). Diagnostician: Renard Dumont MD Pathologist Electronically Signed 04/02/2025 Copies: ~ PATIENT NAME: CHERYL GRAHAM PATHOLOGY DATE OF : 56 REPORT #: [id number] PHYSICIAN: KATRINA TRACY PCP: JOHN TIWARI MD REPORT IS CONFIDENTIAL AND NOT TO BE RELEASED WITHOUT AUTHORIZATION
== END 2025-03-29 13:45 | disposition home or self-care (01) ==
LOC: ED 13:45 → MS 13:47
PROVIDERS: Emergency Medicine; ADMIT Surgery; ATTEND Surgery
PROC: BF13YZZ Fluoroscopy of Gallbladder and Bile Ducts using Other Contrast (ICD-10-PCS; 2025-03-28)
PROC: 0FT44ZZ Resection of Gallbladder, Percutaneous Endoscopic Approach (ICD-10-PCS; principal; 2025-03-28 17:00)
DX: K80.12 Calculus of gallbladder with acute and chronic cholecystitis without obstruction (principal); E66.01 Morbid (severe) obesity due to excess calories; J45.909 Unspecified asthma, uncomplicated; G43.909 Migraine, unspecified, not intractable, without status migrainosus; Z68.41 Body mass index [BMI] 40.0-44.9, adult; Z79.899 Other long term (current) drug therapy; Z88.1 Allergy status to other antibiotic agents; Z88.8 Allergy status to other drugs, medicaments and biological substances
CPT/HCPCS: 00790; 36415; 74177; 74183; 74300; 76705; 80053; 81003; 83690; 83735; 84484; 85025; 88304; 93005; 93010; 94762; 94799; 96372; 96375; 96376; 99285-25; A9270; A9573; G0378; J0360; J0690; J1100; J1650; J1885; J2003; J2250; J2270; J2405; J2704; J3010; J3490; J7121; Q9967

== ENCOUNTER 2025-07-17 05:55 | Day surgery (SDC) | payer MEDICARE, OTHER ==
[~2025-07-17] VITALS: Ht 167.6 cm; Wt 114.0 kg
[~2025-07-17 05:55] MED LIST changes: +ACETAMINOPHEN500 MG PO; +FLUTICASONE-SA1 EAC3 INH; +IBUPROFEN600 MG PO; +LOSARTAN POTASS50 MG PO; +OXYCODON-ACETA1 EAC2 PO; +SUMATRIPTAN SU100 MG PO; +TRULICITY3 MG/0.5 M SUB-Q
[2025-07-17 06:29] VITALS: BP 141/69
[2025-07-17] MEDS ORDERED: LIDOCAINE HCL 1% 5 ML SDV INJ ONE (07:00)
[2025-07-17] MEDS ORDERED: IBLOOD GLUCOSE TEST STRIP 1 EA TEST VI PRN (07:00)
[2025-07-17] MEDS ORDERED: LACTATED RINGER'S 1,000 ML IV SCH (07:00)
--- NOTE | 2025-07-17 07:46 | NUR ---
VISITED DURING SPIRITUAL CARE ROUNDS. PT SUPPORTED BY IN ROOM. BOTH IN OVERALL GOOD SPIRITS; NO IMMEDIATE NEEDS. AUTOMOTIVE CENTER MANAGER PROVIDED SUPPORTIVE PRESENCE, HOSPITALITY, PRAYER, FACILITATED INTERACTION WITH THERAPY ANIMAL. PT AND EXPRESSED GRATITUDE.
[2025-07-17] MEDS ORDERED: LIDOCAINE HCL 2% 5 ML SDV ONE (07:55)
--- NOTE | 2025-07-17 08:44 | NUR ---
07/17/25 0844 Karon Bernal 0839: PT ARRIVES TO PACU SLEEPING, SHE RESPONDS TO STIMULUS AND WAKES UP. REPORT RECEIVED BY PRINCIPAL ARCHAEOLOGIST AND SEXER.
[2025-07-17 09:01] VITALS: BP 163/82
== END 2025-07-17 09:10 | disposition home or self-care (01) ==
LOC: DS 05:55
PROVIDERS: ATTEND Surgery
PROC: 0DBL8ZX Excision of Transverse Colon, Via Natural or Artificial Opening Endoscopic, Diagnostic (ICD-10-PCS; principal; 2025-07-17 07:30)
DX: Z12.11 Encounter for screening for malignant neoplasm of colon (principal); D12.3 Benign neoplasm of transverse colon; K57.30 Diverticulosis of large intestine without perforation or abscess without bleeding; K64.8 Other hemorrhoids; J45.909 Unspecified asthma, uncomplicated; Z88.1 Allergy status to other antibiotic agents; Z88.8 Allergy status to other drugs, medicaments and biological substances; Z79.899 Other long term (current) drug therapy
CPT/HCPCS: 00811; 88305; J2003; J2704